=== PATIENT | female | born 1975 | race Caucasian/White ===

== ENCOUNTER → 2023-04-04 10:24 | Outpatient (CLI) | payer MEDICARE, OTHER, SELFPAY | PROVIDERS: PCP Family Medicine; Visit Provider Family Medicine | DX: L08.9 Local infection of the skin and subcutaneous tissue, unspecified (principal); M79.672 Pain in left foot; B95.7 Other staphylococcus as the cause of diseases classified elsewhere | CPT/HCPCS: 87070; 87205 ==

== ENCOUNTER 2024-08-23 10:14 | Outpatient (CLI) | payer MEDICARE, MEDICAID, SELFPAY ==
[2024-08-23 19:31] LABS: Basophils # 0.1 K/mm3 (0-0.2); Basophils % 0.8 % (0.1-2.0); Eosinophils # 0.2 K/mm3 (0.0-0.4); Eosinophils % 2.5 % (0.1-12.0); Hematocrit 40.4 % (37.0-47.0); Hemoglobin 13.2 g/dL (12.2-16.2); Lymphocytes # 2.1 K/mm3 (0.7-4.5); Lymphocytes % 27.7 % (10-50); Mean Corpuscular HGB Conc 32.7 g/dL (31.8-35.4); Mean Corpuscular Hemoglobin 28.1 pg (27.0-31.2); Mean Corpuscular Volume 85.9 fl (81-99); Mean Platelet Volume 8.7 fl (7.4-10.4); Monocytes # 0.4 K/mm3 (0.1-1.0); Neutrophils # 4.7 K/mm3 (1.8-7.8); Neutrophils % 63.9 % (37.0-80.0); Platelet Count 254 K/mm3 (142-424); Red Cell Distribution Width 14.2 % (11.5-17.5); White Blood Count 7.4 K/mm3 (4.8-10.8)
[2024-08-23 20:13] LABS: Alanine Aminotransferase 37 U/L (12-78); Albumin Level 4.6 g/dl (3.5-5.0); Albumin/Globulin Ratio 1.8 (1.1-1.8); Alkaline Phosphatase 75 U/L (38-126); Aspartate Amino Transferase 38 U/L (14-36); Bilirubin,Total 0.7 mg/dl (0.2-1.3); Blood Urea Nitrogen 14 mg/dl (7-17); Calcium 10.2 mg/dl (8.4-10.2); Carbon Dioxide 30 mmol/L (22.0-30.0); Chloride 106 mmol/L (98-107); Estimated Glomerular Filt Rate 89 ml/min (>60); GFR (African American) 108 ML/MIN (>60); Globulin 2.5 g/dL (1.3-3.2); Glucose 89 mg/dl (74-100); Sodium 141 mmol/L (136-145); Total Protein,Serum 7.1 g/dl (6.3-8.2)
[2024-08-23 20:31] LABS: 25-OH Vitamin D, Total 37.3 ng/mL (30-100)
[2024-08-23 20:43] LABS: Thyroid Stimulating Hormone 1.23 uIU/mL (0.465-4.68)
[2024-08-23 21:13] LABS: Vitamin B12 > 1000 pg/mL (239-931)
== END 2024-08-23 23:59 | disposition home or self-care (01) ==
LOC: LAB.DROPOF 08-24 10:15
PROVIDERS: PCP Nurse Practitioner; Visit Provider Nurse Practitioner
DX: E55.9 Vitamin D deficiency, unspecified (principal); D64.9 Anemia, unspecified; F41.9 Anxiety disorder, unspecified; Z92.3 Personal history of irradiation; R05.9 Cough, unspecified; F39 Unspecified mood [affective] disorder; Z68.29 Body mass index [BMI] 29.0-29.9, adult
CPT/HCPCS: 80053; 82306; 82607; 84443; 85025

== ENCOUNTER 2025-05-13 10:45 | Outpatient (CLI) | payer MEDICARE, MEDICAID, SELFPAY ==
--- OUTSIDE RECORDS SUMMARY | 2022-10-24 08:45 | XMS_ITS | Encounter Summary ---
Author Organization [place] [address] Care Team Providers Care Leaf Coverer Name Role Phone Pranav Schmid MD Primary Care Provider [phone] Marco Herring MD Unavailable [phone] Encounter Details Date Type Department Care Team (Latest Contact Info) Description 10/24/2022 7:45 AM EST Hospital Encounter [place] [address] Andre Morley MD [address] [place] [address] Angela Winn, ADY [address] [place] [address] Left without seen Social History Tobacco Use Types Packs/Day Years Used Date Smoking Tobacco: Former Cigarettes Passive Smoke Exposure: Never Smokeless Tobacco: Never Comments:Quit smoking 26 yea rs ago Alcohol Use Standard Drinks/Week Comments No 0 (1 standard drink = 0.6 oz pur e alcohol) PHQ-2 Answer Date Recorded PHQ-2 Total Score 0 01/13/2024 Sexually Active Control Partners Comments Not Currently Post-menopausal Comments No Sex and Gender Information Value Date Recorded Sex Assigned at Not on file Legal Sex Female 2:24 PM EDT Gender Identity Not on file Sexual Orientation Not on file COVID-19 Exposure Response Date Recorded In the last 10 days, have yo u been in contact with someone who was confirmed or suspected to have Coronavirus/COVID-19? No / Unsure 06/18/2023 1:45 PM EDT documented as of this encounter Functional Status * Is the person deaf or does he/she have serious difficulty hearing? Answer Date of Assessment Author No 06/04/2020 1:22 PM EDT Joao Narvaez RN * Is the person blind or does he/she have serious difficulty seeing even when wearing glasses? Answer Date of Assessment Author No 06/04/2020 1:22 PM EDT Joao Narvaez RN * Does this person have serious difficulty walking or climbing stairs? Answer Date of Assessment Author No 06/04/2020 1:22 PM EDT Joao Narvaez RN * Does this person have difficulty dressing or bathing? Answer Date of Assessment Author No 06/04/2020 1:22 PM EDT Joao Narvaez RN * Because of a physical, mental or emotional condition, does this person have difficulty doing errands alone such as visiting a doctor's office or shopping? Answer Date of Assessment Author No 06/04/2020 1:22 PM EDT Joao Narvaez RN * PHQ-9 Total Score Answer Date of Assessment Author 0 01/13/2024 9:04 AM EDT Pily Andino RN * Question Answer Date of Assessment Author Little interest or pleasure in doing things 0 01/13/2024 9:04 AM TIFFANIET Pily Andino RN Feeling down, depressed, or hopeless 0 01/13/2024 9:04 AM TIFFANIET Pily Andino RN PHQ-2 Total Score 0 01/13/2024 9:04 AM EDT Pily Andino RN * Suicide Severity Rating Answer Date of Assessment Author No Risk 06/14/2024 10:00 AM EDT Iveth Monk RMA * [place] Suicide Severity Rating Scale (Q shift for moderate and high) Question Answer Date of Assessment Author 1. In the past month, have y ou wished you were or wished you could go to sleep and not wake up? 0 06/14/2024 10:00 AM EDT Iveth Tamez RMA 2. In the past month, have y ou actually had any thoughts of killing yourself? (If no, skip to question 6) 0 06/14/2024 10:00 AM EDT Iveth Monk R MA 6. Have you ever done anythi ng, started to do anything, or prepared to do anything to end your life? 0 06/14/2024 10:00 AM EDT Iveth Orozco RMA documented as of this encounter Mental Status * Because of a physical, mental or emotional condition, does this person have serious difficulty concentrating, remembering or making decisions? Answer Entry Date Author No 06/04/2020 1:22 PM EDT Joao Narvaez RN documented in this encounter Plan of Treatment Upcoming Encounters Date Type Department Care Team (Late st Contact Info) Description 05/26/2025 9:30 AM EDT [facility] [address] [facility] [address] [place] [address] 06/06/2025 11:00 AM EDT Appointment [facility] [place] [address] Kasia Denton, PATIENT FINANCIAL SERVICES COORDINATOR [address] [place] [address] 06/08/2025 9:15 AM EDT Appointment [place] [address] Judi Krueger, PROGRAM DIRECTOR [address] [place] [address] [address] [place] [address] 12/01/2025 9:00 AM EST Appointment [facility] [address] [place] [id number] Kasia Denton, PATIENT FINANCIAL SERVICES COORDINATOR [address] [facility] [address] 12/01/2025 9:30 AM EST Appointment [facility] [place] [address] Kasia Denton, PATIENT FINANCIAL SERVICES COORDINATOR [address] [place] [address] documented as of this encounter Goals Goal Patient Goal Type Associated Problems Recent Progress Patient-Stated? Author [facility] Breast [facility] On track(2023 1:44 PM EDT) Shreya Adames, OTTONIEL Note: Patient acknowledges understanding of new diagnosis, plan of care, available resources and how to contact Nurse Navigator with any future questions or concerns. [facility] No Ekaterina Medley, OTTONIEL Note: Patient will be compliant with recommended breast imaging. Breast [facility] No Ekaterina Medley, OTTONIEL Note: Patient will be compliant with monthly Self Breast Exams and is aware of to who to contact for any unusual or concerning findings. documented as of this encounter Visit Diagnoses Not on filedocumented in this encounter Additional Health Concerns Infection Onset Date Last Indicated Resolved Time R/O C-Diff 12/04/2022 12/04/2022 12/04/2022 3:18 PM EST Assessment Noted Time PHQ-9 Depression Total Score: 2 09/10/20 1:24 PM EST PHQ-2 Depression Total Score: 2 09/10/20 1:24 PM EST documented as of this encounter Care Teams Leaf Coverer Relationship Specialty Start Date End Date Pranav Schmid MD PCP - General Family Medicine 01/30/16 Marco Herring MD [address] [place] [address] [place] [address] Medical Oncologist Internal Medicine-Hematology and Oncology 09/10/22 documented as of this encounter
--- OUTSIDE RECORDS SUMMARY | 2025-04-05 14:39 | XMS_ITS | Encounter Summary ---
Author Organization [place] [address] Care Team Providers Care Zinc Plater Name Role Phone Pranav Schmid MD Primary Care Provider [phone] Marco Herring MD Unavailable [phone] Reason for Referral * MRI/CAT Scan (Routine) - Closed Specialty Diagnoses / Procedures Referred By Porfirio mcfarland Referred To Contact Radiology Diagnoses Abdominal pain, left upper quadrant Procedures CT ABDOMEN PELVIS W CONTRAST Alexandra Rivas APRN [address] [place] [address] Phone: tel: fax: [facility] [address] [place] [address] Phone: tel: fax: Referral ID Status Reason Start Date Expiration Date Visits Re quested Visits Authorized [id number] Closed 03/31/2025 03/31/2026 1 1 Reason for Visit * MRI/CAT Scan (Routine) - Closed Specialty Diagnoses / Procedures Referred By Porfirio mcfarland Referred To Contact Radiology Diagnoses Abdominal pain, left upper quadrant Procedures CT ABDOMEN PELVIS W CONTRAST Alexandra Rivas APRN [address] [facility] [address] [place] [address] Phone: tel: fax: [place] [address] [place] [address] Phone: tel: fax: Referral ID Status Reason Start Date Expiration Date Visits Re quested Visits Authorized [id number] Closed 03/31/2025 03/31/2026 1 1 Encounter Details Date Type Department Care Team (Latest Contact Info) Description 04/05/2025 2:39 PM EDT - 04/05/2025 11:59 PM EDT Hospital Encounter [facility] [address] [place] [address] Alexandra Rivas, AIDS COUNSELOR [address] [place] [address] Abdominal pain, left upper quadrant Discharge Disposition: Home or Self Care Social History Tobacco Use Types Packs/Day Years Used Date Smoking Tobacco: Former Cigarettes Smokeless Tobacco: Never Comments:Quit smoking 26 yea rs ago Alcohol Use Standard Drinks/Week Comments No 0 (1 standard drink = 0.6 oz pur e alcohol) PHQ-2 Answer Date Recorded PHQ-2 Total Score 0 01/13/2024 Sexually Active Control Partners Comments Not Currently Comments No Sex and Gender Information Value Date Recorded Sex Assigned at Not on file Legal Sex Female 2:24 PM EDT Gender Identity Not on file Sexual Orientation Not on file documented as of this encounter Functional Status [...] 1:22 PM EDT Joao Narvaez RN documented as of this encounter Mental Status * Because of a physical, mental or emotional condition, does this person have serious difficulty concentrating, remembering or making decisions? Answer Entry Date Author No 06/04/2020 1:22 PM EDT Joao Narvaez RN documented in this encounter Medications at Time of Discharge cholecalciferol, vitamin D3, 10 mcg (400 unit) Oral Capsule 10 mcg. 05/03/2024 ibuprofen (ADVIL;MOTRIN) 800 mg Oral Tablet Take 800 mg by mouth every 8 hours. mecobalamin, vitamin B12, 1,000 mcg Oral Tablet, Chewable 1,000 mcg. 05/03/2024 Carboxymethylcell ulose Sodium (REFRESH TEARS) 0.5 % Opht Drops Place 1 Drop into both eyes 2 times daily. 30 mL 1 10/01/2022 5 cholestyramine light 4 gram Oral Powder in PacketIndications :Invasive ductal carcinoma of breast, female, left (HCC),Diarrhea, unspecified type Take 1 Packet by mouth 3 times daily. 60 Each 1 04/21/2023 5 diphenoxylate-atr opine (LOMOTIL) 2.5-0.025 mg Oral TabletIndications :Invasive ductal carcinoma of breast, female, left (HCC) TAKE ONE (1) TABLET BY MOUTH FIVE (5) TIMES DAILY NEEDED FOR DIARRHEA 45 Tablet 12/05/2022 5 famotidine (PEPCID) 20 mg Oral TabletIndications :Invasive ductal carcinoma of breast, female, left (HCC) Take 1 Tablet by mouth daily. 90 Tablet 3 06/14/2024 11:11 AM EDT 06/14/2024 5 hydrOXYzine (ATARAX) 25 mg Oral Tablet Take 1 Tablet by mouth every 6 hours as needed for Itching. 30 Tablet 1 11/26/2022 5 lidocaine-priloca ine (EMLA) Top Cream Apply topically as needed (30 min prior to access). 04/10/2023 5 MAGIC MOUTHWASH (LIDO/DIPHEN/NYST AT) ORAL COMPOUND swish and swallow 10-20ml every 3 hours as needed *this medication was compounded by the pharmacy using 200ml nystatin, 170ml diphenhydramine, 50ml viscous lidocaine, and 30ml patterson syrup* 450 mL 1 10/24/2022 12:05 PM EST 10/01/2022 5 Miles Mixture (MILES MIXTURE) Suspension Take 10-20 mL by mouth every 3 hours as needed for Other. Swish and swallow 10-20ml every 3 hours PRN pain Nystatin oral suspension (100,000 units/ml) 200 ml Benadryl elixir 170ml Viscous Xylocaine 2% 50ml Patterson or Vanilla syrup (not elixir) 30ml 450 mL 1 10/24/2022 5 penicillin v potassium (VEETID) 500 mg Oral Tablet TAKE ONE (1) TABLET BY MOUTH FOUR TIMES A DAY; TAKE UNTIL ENTIRE RX IS FINISHED. 09/28/2024 5 potassium chloride (KLOR-CON M) 20 mEq Oral Tab Sust.Rel. Particle/Crystal TAKE ONE (1) TABLET BY MOUTH TWICE DAILY 60 Tablet 1 06/24/2023 5 selenium sulfide (SELSUN) 1 % Top Shampoo Use topically once daily. 325 mL 1 11/26/2022 5 triamcinolone (KENALOG) 0.025 % Top Cream Apply topically 2 times daily. 454 g 12/15/2023 10:07 AM EST 12/15/2023 5 documented as of this encounter Discharge Disposition Disposition Code Departure Means Destination Home or Self Care documented in this encounter Plan of Treatment Upcoming Encounters Date Type Department Care Team (Late st Contact Info) Description 05/26/2025 9:30 AM EDT Clinical Support [facility] Edg [address] [facility] [address] [place] [address] 06/06/2025 11:00 AM EDT Appointment [facility] [place] [address] Kasia Denton, AIDS COUNSELOR [address] [place] [address] 06/08/2025 9:15 AM EDT Appointment [facility] [place] [id number] Judi Krueger, LISE [address] [place] [address] [address] [place] [place] [address] 12/01/2025 9:[address] [facility] [address] [place] [id number] Kasia Denton, AIDS COUNSELOR [address] [place] [address] 12/01/2025 9:30 AM EST Appointment [facility] Women's Wellness [facility] [place] [address] Kasia Denton, AIDS COUNSELOR [address] [facility] [place] [id number] documented as of this encounter Goals Goal Patient Goal Type Associated Problems Recent Progress Patient-Stated? Author [facility] On track(2023 1:44 PM EDT) Shreya Adames, OTTONIEL Note: Patient acknowledges understanding of new diagnosis, plan of care, available resources and how to contact Nurse Navigator with any future questions or concerns. [facility] Ekaterina Rocha, OTTONIEL Note: Patient will be compliant with recommended breast imaging. [facility] Ekaterina Rocha, OTTONIEL Note: Patient will be compliant with monthly Self Breast Exams and is aware of to who to contact for any unusual or concerning findings. documented as of this encounter Procedures Procedure Name Priority Date/Time Associated Diagnosis Comments CT ABDOMEN PELVIS W CONTRAST Routine 04/05/2025 3:10 PM EDT Abdominal pain, left upper quadrant documented in this encounter Results * CT ABDOMEN PELVIS W CONTRAST (04/05/2025 3:10 PM EDT) Anatomical Region Laterality Modality Abdomen, Chest, Pelvis, Hip Comp uted Tomography 04/05/2025 3:10 PM EDT Impressions 04/05/2025 3:48 PM EDT 1. No acute CT abnormality of the abdomen or pelvis. 2. Cholelithiasis. Recommend correlation for signs/symptoms of biliary colic. - Note: Radiology results need to be interpreted within a comprehensive clinical context. If you have questions about the radiology report, please contact the office of the ordering clinician. Narrative 04/05/2025 3:[address] ABDOMEN AND PELVIS WITH CONTRAST, 04/05/2025 3:10 PM CLINICAL HISTORY: R10.12-Left upper quadrant [id number]. COMPARISON: None. PROCEDURE COMMENTS: Multi-detector CT of the abdomen and pelvis with multiplanar reformatting. Isovue 370 IV contrast given along with radiodense GI contrast as recorded in EPIC. Dose 1 : CT DLP Total : 565.51 mGycm DLP Spiral Max : 564.23 mGycm Maximum CTDI Vol : 11.98 mGy FINDINGS: LOWER THORAX: Lung bases unremarkable. ABDOMEN AND PELVIS: A few calcified gallstones at the gallbladder neck. The spleen, pancreas, and adrenal glands are unremarkable. Unremarkable appearance of the right kidney. A few left renal cortical cysts, the largest measuring 2.3 cm in the left upper pole. No urolithiasis or hydronephrosis. No bowel obstruction. No inflammatory bowel change. Status post appendectomy. No abnormal mass, fluid, or adenopathy in the pelvis. No acute osseous abnormality. Procedure Note Curtis Baker MD - 04/05/2025 CT ABDOMEN AND PELVIS WITH CONTRAST, 04/05/2025 3:10 PM CLINICAL HISTORY: R10.12-Left upper quadrant [id number]. COMPARISON: None. PROCEDURE COMMENTS: Multi-detector CT of the abdomen and pelvis with multiplanar reformatting. Isovue 370 IV contrast given along withradiodense GI contrast as recorded in EPIC. Dose 1 : CT DLP Total : 565.51 mGycm DLP Spiral Max : 564.23 mGycm Maximum CTDI Vol : 11.98 mGy FINDINGS: LOWER THORAX: Lung bases unremarkable. ABDOMEN AND PELVIS: A few calcified gallstones at the gallbladder neck.The spleen, pancreas, and adrenal glands are unremarkable. Unremarkableappearance of the right kidney. A few left renal cortical cysts, the largestmeasuring 2.3 cm in the left upper pole. No urolithiasis or hydronephrosis. No bowel obstruction. No inflammatory bowel change. Status postappendectomy. No abnormal mass, fluid, or adenopathy in the pelvis. No acute osseous abnormality. IMPRESSION: 1. No acute CT abnormality of the abdomen or pelvis. 2. Cholelithiasis. Recommend correlation for signs/symptoms of biliarycolic. - Note: Radiology results need to be interpreted within a comprehensiveclinical context. If you have questions about the radiology report, please contactthe office of the ordering clinician. Alexandra Rivas AIDS COUNSELOR IMG CT ORDERABLES Final Result documented in this encounter Visit Diagnoses Diagnosis Abdominal pain, left upper quadrant documented in this encounter Administered Medications Inactive Administered Medications - up to 1 most recent administrations Medication Order MAR Action Action Date Dose Rate Site iopamidoL (ISOVUE-370) 370 mg iodine /mL (76 %) injection (LOW) 100 mL 100 mL, Intravenous, ONCE PRN, 1 dose, Starting on 04/05/25 at 1450, Until 04/05/25 at 1510, Radiography/Imaging, Radiology Procedure, VESICANT , CT (Contrasts) Given 04/05/2025 3:10 PM EDT 100 mL sodium chloride 0.9% syringe Intravenous, ONCE PRN, 1 dose, Starting on 04/05/25 at 1450, Until 04/05/25 at 1510, Line Care, Flush peripheral lines every 12 hours, central lines every 8 hours, and after IV medication, CT (Contrasts) Given 04/05/2025 3:10 PM EDT documented in this encounter Care Teams Zinc Plater Relationship Specialty Start Date End Date Pranav Schmid MD PCP - General Family Medicine 01/30/16 Marco Herring MD [address] [place] [address] [place] [address] Medical Oncologist Internal Medicine-Hematology and Oncology 09/10/22 documented as of this encounter
--- OUTSIDE RECORDS SUMMARY | 2025-04-12 09:06 | XMS_ITS | Encounter Summary ---
Author Organization [place] [address] Care Team Providers Care Automobile Service Writer Name Role Phone Pranav Schmid MD Primary Care Provider [phone] Marco Herring MD Unavailable [phone] Reason for Visit * Physical Therapy (Routine) - Pending Review Specialty Diagnoses / Procedures Referred By Porfirio mcfarland Referred To Contact Physical Therapist / Physical Therapy Diagnoses Breast swelling, History of left breast cancer Procedures PT LYMPHEDEMA Kasia Spears, SCIENTIFIC ARTIST [address] [place] [address] Phone: tel: fax: Jessica Marin, QUIQUE Referral ID Status Reason Start Date Expiration Date V isits Requested Visits Authorized [id number] Pending Review 04/12/2025 04/12/2026 99 99 Encounter Details Date Type Department Care Team (Latest Contact Info) Description 04/12/2025 9:06 AM EDT - 04/12/2025 11:59 PM EDT Hospital Encounter [facility] Physical Therapy [address] [place] [address] Jessica Marin, PT Discharge Disposition: Home or Self Care Social [...] of Assessment Author No 06/04/2020 1:22 PM TIFFANIET Joao Narvaez RN * Does this person [...] Entry Date Author No 06/04/2020 1:22 PM Joao Shaver RN documented in this encounter Medications at [...] 2 times daily. 30 mL 1 10/01/2022 cholestyramine light 4 gram Oral Powder in [...] or Self Care documented in this encounter Progress Notes * Blaine Little - 04/12/2025 10:11 AM EDT Program_ID:[id number] Access Code: [email or web address] URL: [email or web address] Date: 04-12-2025 Prepared By: Jessica Marin Program Notes Patient Education - Lymphedema: Exercise Considerations - Putting On and Taking Off a Compression Sleeve and Gauntlet - What Is Lymphedema? - Lifestyle Choices for Lymphedema - Complete Decongestive Therapy for Upper Extremity Lymphedema * Provider, Unknown - 04/12/2025 9:37 AM EDT * Jessica Marin, PT - 04/12/2025 9:30 AM EDT Images from the original note were not included. Upper Extremity Lymphedema Evaluation Patient Name: Rock Morris : 1975 Visit #: 1 (Medicare Replacement: [employer]) Onset Date: LEFT Breast Sx for IDC Lumpectomy & ALND 03/06/2023-NEGATIVE 3 LN MD Diagnosis: Breast swelling - Primary N63.0 611.72 History of left breast cancer Z85.3 Restrictions/Precautions: [place] LEFT sided Breast cancer, Brain ganglioma, s/p lumpectomy, chemo, XRT, ALND, patric. Cubital rash Referring Physician: Corrie Radiation Oncologist: [facility] Medical Oncologist: Marco Herring Surgeon: Peyman GODFREY Follow Up: Endo 04/25 MRI 06/06 Rad Onc: 06/08 Mammo & F/U w referring 12/01/25 Evaluation Date: 04/12/2025 Reassessment Due: 05/12/25 Primary Insurance: MEDICARE REPLACEMENT/[employer]ET[employer] MEDICARE HMO Secondary Insurance: NONE Future Appointments Date Time Provider Department Center 04/12/2025 9:30 AM Jessica Marin, PT [facility] 04/25/2025 2:30 PM [facility] ENDO RM 7 [facility] Endo [facility] 06/06/2025 11:00 AM [facility] MR RM 1 [facility] MRI [facility] 06/08/2025 9:15 AM Judi Krueger, LEADITE WORKER [facility] RAD [facility] 12/01/2025 9:00 AM [facility] MAMMO DIAG [facility]ON[facility] RM 1 [facility] Mammo [facility] 12/01/2025 9:30 AM Kasia Denton APRN [facility] Insurance Authorization: Physical Therapist Authorized (04/12/2025-04/12/2026) Visits Requested Visits Authorized Visits Completed Visits Scheduled 1 1 -- 1 Details Referral ID: [id number] Authorization Status Reason: -- Authorization Comments: -- Referred To: Jessica Marin PT at [facility] PT, [facility] Referred By: Kasia Denton APRN Creation Date: 04/03/2025 Referral Reasons: -- Referral Order: -- Time In/Out: 930/1020 a.m. Timed Treatment Minutes: Self care/home management training 15 minutes Therapeutic Exercise 15 minutes Total Timed Code Treatment Minutes: 30 Untimed Treatment Minutes: PT Eval Total Treatment Minutes: 50 Charges: MOD EVAL x1, Pt ed x1, TE x1 This evaluation to serve as D/C summary if the patient doesn't return for further treatment. Subjective: Patient is a 49 y.o. female with primary diagnosis of left Upper extremities and Breast/Chest lymphedema by Kasia Sauer, ADY History: Pt states she was dx & had brain Sx at age 10 years, 16 years, has been on disability for ganglioma since age 15, lives w in laws, raising her 8 y/o grand daughter, MIL helps home schoolher grand daughter, Pt does NOT drive since brain Sx, MIL typically accompanies her, but came by way of Ins. Provided transport TODAY. Had LEFT breast cancer in 2022, completed chemo, XRT following LEFT lumpectomy w ALND. Cancer History: Type of Cancer: [x] Yes-LEFT IDC [] No Surgery for Cancer: [x] Yes-LEFT lumpectomy w SN [] No Lymph Nodes Removed: 3 Positive: 0 Chemo: [x] Yes [] No When: 2022 Port still in: [] Yes [x] No Radiation: [x] Yes [] No When: 2022 Complications: infections If pain a symptom for which you are being seen? No Pain is not an issue for which treatment is being performed. Diagnostic Tests: Nothing recent Doppler: [] Yes [x] No Results: PET: [] Yes [x] No Results: CT: [] Yes [x] No Results: MRI: [] Yes [x] No Results: MUGA: [] Yes [x] No Results: Have you received any Speech or Physical therapy this year? [] Yes [x] No Are you currently receiving any Home Health services? [] Yes [x] No Any problems with speech, communication, memory? [x] Yes-from brain Sx [] No Barriers to learning? [x] Yes-comprehension from brain Sx [] No Recent falls? [] Yes [x] No How would you rate your overall health? [] Excellent [] Good [x] Fair [] Poor Any significant weight loss/gain: [x] Yes [] No Amount: has increased 30 pounds over last 18 mo. Any feelings of depression? [] Yes [x] No Any sexual health discomfort,dryness, or related issues? 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) Urinary incontinence Past Surgical History: Procedure Laterality Date APPENDECTOMY BRAIN SURGERY cancer-gangioloma BREAST BIOPSY Right 02/21/2016 Right Breast US biopsy benign BREAST BIOPSY Left 08/13/2022 malignant BREAST BIOPSY Right 09/09/2022 malignant BREAST BIOPSY Left 04/10/2023 Left breast re excision; Surgeon: Andre Morley MD; Location: [facility]; Service: General BREAST LUMPECTOMY Bilateral 03/06/2023 Left Breast Mammogram Guided Segmentectomy, Mcconnell Lymph Node Dissection, Right breast Mammogram guided Segmentectomy ; Surgeon: Andre Morley MD; Location: [facility]; Service: General IR FLUOROSCOPY GUIDED CENTRAL VENOUS ACCESS DEVICE REMOVAL 10/09/2023 IR FLUOROSCOPY GUIDED CENTRAL VENOUS ACCESS DEVICE REMOVAL 10/09/2023 Meredith Villarreal PA-C [facility] IR IR PORT PLACEMENT EQUAL OR > 5 YEARS 09/17/2022 IR PORT PLACEMENT EQUAL OR > 5 YEARS 09/17/2022 Kirt Mullins MD [facility] IR IR ULTRASOUND GUIDED VASCULAR ACCESS 09/17/2022 IR ULTRASOUND GUIDED VASCULAR ACCESS 09/17/2022 Kirt Mullins MD [facility] IR LAPAROSCOPY MOUTH SURGERY wisdom teeth TONSILLECTOMY AND ADENOIDECTOMY (Not in a hospital admission) Current Outpatient Medications: Carboxymethylcellulose Sodium (REFRESH TEARS) 0.5 % Opht Drops, Place 1 Drop into both eyes 2 timesdaily. (Patient not taking: Reported on 07/27/2024), Disp: 30 mL, Rfl: 1 cholecalciferol, vitamin D3, 10 mcg (400 unit) Oral Capsule, 10 mcg., Disp: , Rfl: cholestyramine light 4 gram Oral Powder in Packet, Take 1 Packet by mouth 3 times daily. (Patient not taking: Reported on 07/27/2024), Disp: 60 Each, Rfl: 1 diphenoxylate-atropine (LOMOTIL) 2.5-0.025 mg Oral Tablet, TAKE ONE (1) TABLET BY MOUTH FIVE (5) TIMES DAILY NEEDED FOR DIARRHEA (Patient not taking: Reported on 12/02/2024), Disp: 45 Tablet, Rfl: 0 famotidine (PEPCID) 20 mg Oral Tablet, Take 1 Tablet by mouth daily. (Patient not taking: Reported on 07/27/2024), Disp: 90 Tablet, Rfl: 3 hydrOXYzine (ATARAX) 25 mg Oral Tablet, Take 1 Tablet by mouth every 6 hours as needed for Itching.(Patient not taking: Reported on 07/27/2024), Disp: 30 Tablet, Rfl: 1 ibuprofen (ADVIL;MOTRIN) 800 mg Oral Tablet, Take 800 mg by mouth every 8 hours., Disp: , Rfl: lidocaine-prilocaine (EMLA) Top Cream, Apply topically as needed (30 min prior to access). (Patientnot taking: Reported on 12/02/2024), Disp: , Rfl: MAGIC MOUTHWASH (LIDO/DIPHEN/NYSTAT) ORAL COMPOUND, swish and swallow 10-20ml every 3 hours as needed *this medication was compounded by the pharmacy using 200ml nystatin, 170ml diphenhydramine, 50mlviscous lidocaine, and 30ml patterson syrup* (Patient not taking: Reported on 07/27/2024), Disp: 450 mL, Rfl: 1 mecobalamin, vitamin B12, 1,000 mcg Oral Tablet, Chewable, 1,000 mcg., Disp: , Rfl: Miles Mixture (MILES MIXTURE) Suspension, Take 10-20 mL by mouth every 3 hours as needed for Other.Swish and swallow 10-20ml every 3 hours PRN pain Nystatin oral suspension (100,000 units/ml) 200 mlBenadryl elixir 170ml Viscous Xylocaine 2% 50ml Patterson or Vanilla syrup (not elixir) 30ml (Patient not taking: Reported on 07/27/2024), Disp: 450 mL, Rfl: 1 penicillin v potassium (VEETID) 500 mg Oral Tablet, TAKE ONE (1) TABLET BY MOUTH FOUR TIMES A DAY; TAKE UNTIL ENTIRE RX IS FINISHED. (Patient not taking: Reported on 12/02/2024), Disp: , Rfl: potassium chloride (KLOR-CON M) 20 mEq Oral Tab Sust.Rel. Particle/Crystal, TAKE ONE (1) TABLET BY MOUTH TWICE DAILY (Patient not taking: No sig reported), Disp: 60 Tablet, Rfl: 1 selenium sulfide (SELSUN) 1 % Top Shampoo, Use topically once daily. (Patient not taking: Reported on 12/02/2024), Disp: 325 mL, Rfl: 1 triamcinolone (KENALOG) 0.025 % Top Cream, Apply topically 2 times daily. (Patient not taking: Reported on 07/27/2024), Disp: 454 g, Rfl: 0 Allergies Allergen Reactions Doxycycline Shortness Of Breath and Rash Sulfa (Sulfonamide Antibiotics) Hives and Shortness Of Breath Chlor-Trimeton Non-Drowsy Difficulty w/concentration Clindamycin Rash Codeine agitation Tamiflu [Oseltamivir] Myalgia Prior Interventions: NONE Sleeve: [] Yes [x] No Date Purchased: LAST year Vendor: [employer] Bandages: [] Yes [x] No Using currently: [] Yes [x] No Someone to assist with bandages: [] Yes [x] No MLD: [] Yes [x] No Current Self MLD: [] Yes [x] No Social/Function: on disability-since 1991 age 15 years due to brain cancer dx age 16 for Sx startedage 10 years, Recreational Activities: cooking, cleaning housework, MIL home schools her 8 y/o grand daughter, Living situation: shares house w MIL & STEW-she rents half of the house from them, raising her 8y/o grand daughter, uses ride service thru Ins. Pt does drive, but due to brain Sx, MIL rides w her Hand dominance: [] Left [x] Right Patient Goals: reaching overhead, managing Lymphedema, self MLD & replace compression every 6 mo. Objective: Observation: 202 lb. Mesomorphic RIGHT handed middle aged female weears glasses BMI=33.4 Body Composition: Mesomorphic Assistive Devices/DME (if present): Posture: WNL FOTO Score & PSFS FOTO??: (1-100) Initial 04/12/2025 Re-Assess Score (Predicted) 68 (61) PSFS: Patient will be able to... (0-10) Reaching overhead 9 Managing Lymphedema 0 Self MLD & obtain replacement compression every 6 mo. 0 Sensation/Neurovascular: WFL Skin Integrity: Open areas: [] Yes [x] No Comments: Drainage: [] Yes [x] No Erythema: [x] Yes [] No Other: hyperpigmentation and scarring & divet where lumpectomy performed Left lateral side breast behind areola Nails: striated Incisions: Edema: Attached girth measurements: [x] Yes [] No Pitting Present: Stage III Stemmer's Sign: Negative ROM: WFL?: [x] Yes [] No If no, describe limitations: Shoulder ROM: Upper Extremity (normal ??) Active (Passive) Left Right Shoulder Flexion (180??) 175 175 Shoulder Abd (180??) 180 180 Girth Measurements: Date: 04/12/2025 04/12/2025 (cm) Left Right Metacarpals 17.5 cm 17.7 cm Diagonal Palm 19.3 20 Wrist 14.4 14.1 6 above 24.5 25.3 Elbow 24.5 24.5 2 above 30 29.7 6 above 33.5 35 Arm length 40 Axillary Circumference 93 Chest/Breast Circumference 104.5 Umbilical Circumference 93 Treatment: Pt ed x15 min.: [x] Discussed lymphedema, CDT, the 18 steps, home pumps, compression options, and answered patient's questions. [] Gave pt list of compression vendors. [x] Written & verbal instructions for self MLD & for HEP: There-ex x15 min.: Access Code: [email or web address] URL: [email or web address] Date: 04/12/2025 Prepared by: Jessica Marin Patient Education - Lymphedema: Exercise Considerations - Putting On and Taking Off a Compression Sleeve and Gauntlet - What Is Lymphedema? - Lifestyle Choices for Lymphedema - Complete Decongestive Therapy for Upper Extremity Lymphedema [] Manual Therapy: MLD with pt supine including short neck, deep breathing, Right axilla, Left groin, Left anterior chest, Left UE. [x] No time for MLD due to time needed for eval & instruction. [x] Send info to Vendor: vendor of choice for home pump/compression therapy following 30 days FAILED conservative mgt. To include elevation, compression, diet, exercise & MLD. Response to HEP instruction/patient education: Instruction/patient education, Verbalized understanding, Returned demonstration Response to treatment: No change in pain or function Assessement: Patient presents with left Upper extremities Secondary Lymphedema. Pt presents with hyperpigmentation. Pt will need 30 day trial exercise, compression, elevation for > 4 weeks without relief. Functional impairments and activity limitations include: reaching overhead, managing Lymphedema & replacing compression as well as self MLD. Referral: [] Yes, home pump [x] Yes, compression [] No Resource list given: [] Yes, compression garment vendors [] No, patient has from previous PT [x] No-pt forgot Rehab Potential: [] Good [x] Fair [] Poor Short Term Goals (set for 2 weeks) to 04/25/25: Patient will be independent with HEP in order to promote long-term health and reduce risk for injury. [x] Unmet [] Progressing [] Met 2. Patient will demonstrate/verbalize understanding of the steps to lymphedema prevention to minimize risk of progression [x] Unmet [] Progressing [] Met 3. Obtain compression garment with independent donning/doffing. [x] Unmet [] Progressing [] Met Mcfp Goals: (set for 4 weeks) to 05/12/25: Patient will demonstrate independence with compression application to decrease lymphedema progression [x] Unmet [] Progressing [] Met 2. Patient will be independent with self MLD to decrease lymphedema progression [x] Unmet [] Progressing [] Met 3. Improve PSFS scores by 1 point to show overall improvement with reaching overhead, managing Lymphedema & replacing compression every 6 mo. [x] Unmet [] Progressing [] Met 4. Improve function score on FOTO to 73 for reaching overhead, managing Lymphedema & replacing compression every 6 mo. [x] Unmet [] Progressing [] Met Plan: [] Continue per plan of care [] Alter current plan (see comments) [x] Plan of care initiated [] Hold pending MD visit [] Discharge Comments: Reinforce self-care Patient will be seen 1-2 times per week for 4 weeks to 05/12/25. Treatments to consist of Therapeutic exercise 38300, Manual soft tissue and/or joint mobilization 48697, Patient education, Self care/Home management training 25314, and Vaso 40118 with focus on Complete Decongestive Therapy (instruction in self care, exercise instruction, compression therapy, manual lymphatic drainage, skin and nailcare). Patient present with co-morbidities of neurological disorder and personal factors that may impact patient/family's ability to Perform ADLs. During today's evaluation, he/she presented with problem areas in cardiovascular/ pulmonary system and integumentary system that are impacting functional activities and participation (see objective measures for further detail). Due to indicated course of physical therapy, the patient's presentation is evolving at this time. This patient presented today withmoderate complexity. Reference Chart: Co-morbidities & Personal Factors Body system elements Presentation Clinical Decision Making Low Evaluation 0 1-2 Stable / Predictable Low Moderate Evaluation 1-2 3 or more Evolving/ Changing Moderate High Evaluation 3 or more 4 or more Unstable/ Unpredictable High Signature: Jessica Marin, PT Date: 04/12/2025 documented in this encounter Plan of Treatment Upcoming Encounters Date Type Department Care Team (Late st Contact Info) Description 05/26/2025 9:30 AM EDT Clinical Support [facility] [address] [place] [address] [address] [place] [address] 06/06/2025 11:00 AM EDT Appointment [facility] [place] [address] Kasia Denton, SCIENTIFIC ARTIST [address] [place] [address] 06/08/2025 9:15 AM EDT Appointment [facility] [place] [address] Judi Krueger, LEADITE WORKER [address] [place] [address] [address] [place] [address] 12/01/2025 9:00 AM EST Appointment [facility] [address] [place] [id number] Kasia Denton, SCIENTIFIC ARTIST [address] [place] [address] 12/01/2025 9:30 AM EST Appointment [facility] [place] [address] Kasia Denton, SCIENTIFIC ARTIST [address] [facility] [address] documented as of this encounter Goals Goal Patient Goal Type Associated Problems Recent Progress Patient-Stated? Author Breast Health Breast Health On track(2023 1:44 PM EDT) Shreya Adames, RN Note: Patient acknowledges understanding of new diagnosis, plan of care, available resources and how to contact Nurse Navigator with any future questions or concerns. [facility] Ekaterina Rocha, RN Note: Patient will be compliant with recommended breast imaging. [facility] Ekaterina Rocha, RN Note: Patient will be compliant with monthly Self Breast Exams and is aware of to who to contact for any unusual or concerning findings. documented as of this encounter Visit Diagnoses Not on filedocumented in this encounter Care Teams Automobile Service Writer Relationship Specialty Start Date End Date Pranav Schmid MD PCP - General Family Medicine 01/30/16 Marco Herring MD [address] [place] [address] [place] [address] Medical Oncologist Internal Medicine-Hematology and Oncology 09/10/22 documented as of this encounter
[2025-05-13 14:41] LABS: Hematocrit 41.9 % (37.0-47.0); Hemoglobin 13.1 g/dL (12.2-16.2); Immature Granulocytes % 0.2 %; Mean Corpuscular HGB Conc 31.3 g/dL (31.8-35.4); Mean Corpuscular Hemoglobin 27.9 pg (27.0-31.2); Mean Corpuscular Volume 89.3 fl (81-99); Nucleated Red Blood Cells % 0 %; Platelet Count 233 K/mm3 (142-424); Red Blood Count 4.69 M/mm3 (4.20-5.40); Red Cell Distribution Width-SD 49.8 fL; White Blood Count 5.3 K/mm3 (4.8-10.8)
[2025-05-13 14:59] LABS: Alanine Aminotransferase 36 U/L (12-78); Albumin Level 4.6 g/dl (3.5-5.0); Albumin/Globulin Ratio 1.8 (1.1-1.8); Alkaline Phosphatase 73 U/L (38-126); Anion Gap 13.3 mEq/L (5-15); Aspartate Amino Transferase 31 U/L (14-36); Bilirubin,Total 0.4 mg/dl (0.2-1.3); Blood Urea Nitrogen 13 mg/dl (7-17); Calcium 9.8 mg/dl (8.4-10.2); Carbon Dioxide 30 mmol/L (22.0-30.0); Chloride 102 mmol/L (98-107); Cholesterol 219 mg/dl (140-200); Creatinine,Serum 0.80 mg/dl (0.52-1.04); Estimated Glomerular Filt Rate 76 ml/min (>60); GFR (African American) 92 ML/MIN (>60); Globulin 2.5 g/dL (1.3-3.2); Glucose 83 mg/dl (74-100); HDL Cholesterol 41 mg/dl (40-60); Potassium 4.3 mmoL/L (3.5-5.1); Sodium 141 mmol/L (136-145); Total Protein,Serum 7.1 g/dl (6.3-8.2); Triglycerides 238 mg/dl (30-150); Uric Acid 4.2 mg/dl (2.5-6.2)
[2025-05-13 15:41] LABS: C-Reactive Protein 2.0 mg/L (0-4)
[2025-05-13 16:27] LABS: Hepatitis C Ab Qual. W/ RFX NEGATIVE (Negative)
[2025-05-14 05:57] LABS: Hepatitis B Surface Antigen Negative (Negative)
[2025-05-14 10:43] LABS: RA Latex Turbid. 13.6 IU/mL (<14.0)
--- OUTSIDE RECORDS SUMMARY | 2025-05-16 09:00 | XMS_ITS | Encounter Summary ---
Author Organization [place] [address] Care Team Providers Care Ux Architect Name Role Phone Pranav Schmid MD Primary Care Provider [phone] Marco Herring MD Unavailable [phone] Reason for Referral * Ultrasound (Routine) - Pending Review Specialty Diagnoses / Procedures Referred By Contac bruna Referred To Contact Radiology Diagnoses Postmenopausal bleeding Procedures US PELVIS AND TRANSVAGINAL NON OB COMPLETE Dick Chang MD [address] [place] [address] [address] [place] [address] Phone: tel: fax: Referral ID Status Reason Start Date Expiration Date V isits Requested Visits Authorized [id number] Pending Review 05/16/2025 05/16/2026 1 1 Reason for Visit * Reason Comments Follow-up Pt following up from mammogram on 03/04/2025Pt consents to [facility] Annual Exam Preventative Care La st thin prep: 03/18/2022 Result: NormalLast Mammogram: 03/04/2025 ACR 0 needs additional imaginingMammo US 03/04/2025Last Colon Cancer Screening: Never doneLast DEXA Scan: Not done (due at 50 yrs 10/2025)HPV Vaccine Series: Never doneScreening Labs: 2023 Encounter Details Date Type Department Care Team (Latest Contact Info) Description 05/16/2025 9:00 AM EDT Office Visit [facility] [address] [facility] [address] [place] [phone] Dick Chang MD 20 [facility] [address] [place] [phone] Invasive ductal carcinoma of breast, female, left (HCC) (Primary Dx); History of breast cancer; Well woman exam with routine gynecological exam; Cervical cancer screening; Screening for HPV (human papillomavirus); Postmenopausal bleeding Social History Tobacco Use Types Packs/Day Years Used Date Smoking Tobacco: Former Cigarettes Passive Smoke Exposure: Never Smokeless Tobacco: Never Tobacco Cessation:Counseling Given: Not Answered Comments:Quit smoking 26 years ago Alcohol Use Standard Drinks/Week Comments No [...] on file documented as of this encounter Last Filed Vital Signs Vital Sign Reading Time Taken Comments Blood Pressure 122/68 05/16/2025 9:10 AM EDT Pulse - - Temperature - - Respiratory Rate - - Oxygen Saturation - - Inhaled Oxygen Concentration - - Weight 89 kg (196 lb 3.2 oz) 05/16/2025 9:10 AM EDT Height 167.6 cm (5' 6 ) 05/16/2025 9:10 AM EDT Body Mass Index 31.67 05/16/2025 9:10 AM EDT documented in this encounter Functional Status * Is the [...] EDT Clinical Support [facility] [address] [place] [address] [address] [place] [address] 06/06/2025 11:00 AM EDT Appointment [facility] [place] [address] Kasia Denton, HANSARD REPORTER [address] [place] [address] 06/08/2025 9:15 AM EDT Appointment [place] [address] Judi Krueger NP [address] [place] [address] [place] [address] 12/01/2025 9:00 AM EST Appointment [place] [facility] [address] [place] [id number] Kasia Denton, HANSARD REPORTER [address] [facility], [place] [id number] 12/01/2025 9:30 AM EST Appointment [facility] [address] [place] [id number] Kasia Denton, HANSARD REPORTER [address] [facility] [place] [address] Pending Results Name Type Priority Associated Diagnoses Date /Time [facility] WELL LOGGING CAPTAIN CYTOLOGY ORDER Lab Routine Cervical cancer screening Screening for HPV (human papillomavirus) 05/16/2025 9:44 AM EDT WELL LOGGING CAPTAIN CYTOLOGY REQUEST (PAP ONLY) Lab Routine Cervical cancer screening Screening for HPV (human papillomavirus) 05/16/2025 9:44 AM EDT HPV HIGH RISK WITH REFLEX TO GENOTYPE Microbiology Routine Cervical cancer screening Screening for HPV (human papillomavirus) 05/16/2025 9:44 AM EDT Scheduled Orders Name Type Priority Associated Diagnoses Orde r Schedule [facility] WELL LOGGING CAPTAIN CYTOLOGY ORDER Lab Routine Cervical cancer screening Screening for HPV (human papillomavirus) Expected: 05/16/2025, Expires: 05/23/2025 US PELVIS AND TRANSVAGINAL NON OB COMPLETE Imaging Routine Postmenopausal bleeding 1 Occurrences starting 05/16/2025 until 05/16/2026 documented as of this encounter Goals Goal Patient Goal Type Associated Problems Recent Progress Patient-Stated? Author [facility] On track(2023 1:44 PM EDT) Shreya Adames, OTTONIEL Note: Patient acknowledges understanding of new diagnosis, plan of care, available resources and how to contact Nurse Navigator with any future questions or concerns. [facility] Ekaterina Rocha, OTTONIEL Note: Patient will be compliant with recommended breast imaging. [facility] Ekaterina Rocha, OTTONIEL Note: Patient will be compliant with monthly Self Breast Exams and is aware of to who to contact for any unusual or concerning findings. documented as of this encounter Visit Diagnoses Diagnosis Invasive ductal carcinoma of breast, female, left (HCC)- Primary History of breast cancer Personal history of malignant neoplasm of breast Well woman exam with routine gynecological exam Routine gynecological examination Cervical cancer screening Screening for malignant neoplasm of the cervix Screening for HPV (human papillomavirus) Special screening examination for human papillomavirus (HPV) Postmenopausal bleeding documented in this encounter Historical Medications * This list may reflect changes made after this encounter. predniSONE (DELTASONE) 10 mg Oral Tablet Take by mouth 2 times daily. added in this encounter Care Teams Ux Architect Relationship Specialty Start Date End Date Pranav Schmid MD PCP - General Family Medicine 01/30/16 Marco Herring MD [address] [facility] [place] [address] Medical Oncologist Internal Medicine-Hematology and Oncology 09/10/22 documented as of this encounter
--- OUTSIDE RECORDS SUMMARY | 2025-05-16 10:48 | XMS_ITS | Encounter Summary ---
Author Organization [place] [address] Care Team Providers Care Licensed Certified Orthotist Name Role Phone Pranav Schmid MD Primary Care Provider [phone] Marco Herring MD Unavailable [phone] Reason for Referral * Consultation (Routine) - Authorization Not Needed Specialty Diagnoses / Procedures Referred By Contac t Referred To Contact Gynecology Diagnoses Invasive ductal carcinoma of breast, female, left (HCC) Vaginal bleeding Procedures ME OFFICE/OUTPATIENT NEW MODERATE MDM 45 MINUTES Marco Herring MD [address] [place] [address] Phone: tel: fax: [facility] [address] [address] Phone: tel: fax: Referral ID Status Reason Start Date Expiration Date Visits Requested Visits Authorized [id number] Authorization Not Needed 04/20/2025 04/20/2026 99 99 Question Answer Is this for an abnormal pap? No Comments Vaginal bleeding Reason for Visit * Reason Onset Date Comments Symptom Call 04/20/2025 Vaginal bleeding Encounter Details Date Type Department Care Team (Late st Contact Info) Description 04/20/2025 Telephone [facility] Care [place] [address] Marco Herring MD [address] [place] [id number] Symptom Call (Vaginal bleeding ) Social History Tobacco Use Types Packs/Day Years [...] 1:22 PM TIFFANIET Joao Narvaez RN * Is the person blind or does he/she have serious difficulty seeing even when wearing glasses? Answer Date of Assessment Author No 06/04/2020 1:22 PM Joao Shaver RN * Does this person have serious difficulty walking or climbing stairs? Answer Date of Assessment Author No 06/04/2020 1:22 PM TIFFANIET Joao Narvaez RN * Does this person have difficulty dressing or bathing? Answer Date of Assessment Author No 06/04/2020 1:22 PM Joao Shaver RN * Because of a physical, mental or emotional condition, does this person have difficulty doing errands alone such as visiting a doctor's office or shopping? Answer Date of Assessment Author No 06/04/2020 1:22 PM Joao Shaver RN documented as of this encounter Mental Status * Because of a physical, mental or emotional condition, does this person have serious difficulty concentrating, remembering or making decisions? Answer Entry Date Author No 06/04/2020 1:22 PM Joao Shaver RN documented in this encounter Miscellaneous Notes * Telephone Encounter - Zahraa Cho RN - 04/26/2025 8:10 AM EDT Pt has appt with Dr. Chang' on 05/16. 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 Call placed to Rock who states she has a rash that she is seeing derm for today. Pt has been on several abx and steroids but rash is not clearing up- initially thought shingles but meds aren't working. Patient has had vaginal bleeding for 3 days, not saturating pads, light bleeding per patient. Patient agreeable to see superintendent institution- will place referral. Last saw Dr. Snow in 2021. * Telephone Encounter - Zahraa Cho RN - 04/20/2025 11:04 AM EDT Reviewing chart. * Telephone Encounter - Carla Pino NA - 04/20/2025 10:47 AM EDT Medical Oncology Clinic Symptom Call: Yes Primary Oncologist: Nevaeh Diagnoses: Current Treatment: Last date of Tx: 09/15/23 Last appt and provider: 03/02/25 Corrie Next scheduled office visit: 06/08/25 (rad onc follow up) Caller reports the patient has the following symptoms: Patient called asking to speak with someone in [facility]. Asked what doctor she sees and she said wanted her to see someone over there but she never had. Asked what she needed and she said that she went through menopause in 2021 and has not bled since. Said she started bleeding 3 days ago and it is getting increasingly heavier. Stated blood is bright red. Told patient I would send message over to Dr. Herring since they are not an active patient of [facility]. Symptoms started (date/time): 3 days ago [facility] (Y, N, N/A): yes What Location is the Patient seen at: ED Preferred call back number: [phone] Explained to the caller, if this is a medical emergency please call 911 or go to the nearest emergency room. Reason for call: Patient called asking to speak with someone in [facility]. Asked what doctor she sees and she said wanted her to see someone over there but she never had. Asked what she needed and she said that she went through menopause in 2021 and has not bled since. Said she started bleeding 3 days ago and it is getting increasingly heavier. Stated blood is bright red. Preferred call back number: [phone] documented in this encounter Plan of Treatment Upcoming Encounters Date Type Department Care Team (Late st Contact Info) Description 05/26/2025 9:30 AM EDT Clinical Support [facility] [address] [place] [address] [address] [place] [address] 06/06/2025 11:00 AM EDT Appointment [facility] [place] [address] Kasia Denton, PEGA DEVELOPER [address] [place] [phone] 06/08/2025 9:15 AM EDT Appointment [place] [address] Judi Krueger, LISE [address] [place] [address] [address] [place] [address] 12/01/2025 9:00 AM EST Appointment [place] [facility] [address] [facility] Kasia Denton, PEGA DEVELOPER [address] [place] [address] 12/01/2025 9:30 AM EST Appointment [facility] [address] [place] [address] Kasia Denton, PEGA DEVELOPER [address] [place] [address] Scheduled Referrals Name Type Priority Associated Diagnoses Orde r Schedule AMB REFERRAL TO OB-HOT IRON WORKER Outpatient Referral Routine Invasive ductal carcinoma of breast, female, left (HCC) Vaginal bleeding Ordered: 04/20/2025 documented as of this encounter Goals Goal Patient Goal Type Associated Problems Recent Progress Patient-Stated? Author [facility] On track(2023 1:44 PM EDT) Shreya Adames, RN Note: Patient acknowledges understanding of new diagnosis, plan of care, available resources and how to contact Nurse Navigator with any future questions or concerns. [facility] Ekaterina Rocha, OTTONIEL Note: Patient will be compliant with recommended breast imaging. [facility] Ekaterina Rocha, OTTONIEL Note: Patient will be compliant with monthly Self Breast Exams and is aware of to who to contact for any unusual or concerning findings. documented as of this encounter Visit Diagnoses Diagnosis Invasive ductal carcinoma of breast, female, left (HCC)- Primary Vaginal bleeding Other specified noninflammatory disorder of vagina documented in this encounter Care Teams Licensed Certified Orthotist Relationship Specialty Start Date End Date Pranav Schmid MD PCP - General Family Medicine 01/30/16 Marco Herring MD [address] [place] [address] [place] [address] Medical Oncologist Internal Medicine-Hematology and Oncology 09/10/22 documented as of this encounter
--- OUTSIDE RECORDS SUMMARY | 2025-05-16 10:48 | XMS_ITS | Encounter Summary ---
Author Organization [place] [address] Care Team Providers Care Terminal Make Up Operator Name Role Phone Pranav Schmid MD Primary Care Provider [phone] Marco Herring MD Unavailable [phone] Encounter Details Date Type Department Care Team (Late st Contact Info) Description 04/11/2025 Orders Only [facility] Physical Therapy [facility] [address] [place] [address] Jessica Marin, PT Social History Tobacco Use Types Packs/Day Years [...] Description 05/26/2025 9:30 AM EDT Clinical Support [facility] [address] [place] [address] [place] [phone] 06/06/2025 11:00 AM EDT Appointment [facility] [place] [address] Kasia Denton SALES ACCOUNT SPECIALIST [address] [place] [address] 06/08/2025 9:15 AM EDT Appointment [facility] [place] [address] Judi Krueger, RESEARCH MANAGER [address] [place] [address] [address] [place] [address] 12/01/2025 9:00 AM EST Appointment [facility] [address] Tay [facility] Kasia Denton SALES ACCOUNT SPECIALIST [address] [place] [address] 12/01/2025 9:30 AM EST Appointment [facility] [place] [address] Kasia Denton SALES ACCOUNT SPECIALIST [address] [place] [address] documented as of this encounter Goals Goal Patient Goal Type Associated Problems Recent Progress Patient-Stated? Author [facility] Breast Health On track(2023 1:44 PM EDT) Shreya Adames, RN Note: Patient acknowledges understanding of new diagnosis, plan of care, available resources and how to contact Nurse Navigator with any future questions or concerns. [facility] Breast Health No Ekaterina Medley, OTTONIEL Note: Patient will be compliant with recommended breast imaging. [facility] Ekaterina Rocha, OTTONIEL Note: Patient will be compliant with monthly Self Breast Exams and is aware of to who to contact for any unusual or concerning findings. documented as of this encounter Visit Diagnoses Not on filedocumented in this encounter Care Teams Terminal Make Up Operator Relationship Specialty Start Date End Date Pranav Schmid MD PCP - General Family Medicine 01/30/16 Marco Herring MD [address] [place] [address] [place] [address] Medical Oncologist Internal Medicine-Hematology and Oncology 09/10/22 documented as of this encounter
--- OUTSIDE RECORDS SUMMARY | 2025-05-16 10:48 | XMS_ITS | Clinical Summary ---
Author Organization Healthcare Address [address] [place] [address] Care Team Providers Care Enterprise Application Administrator Name Role Phone Pranav Schmid MD Primary Care Provider [phone] Allergies Active Allergy Reactions Criticality Noted Date Comments Codeine Other - please docum ent in the comment field Low 08/22/2022 agitation Oseltamivir Other - please docum ent in the comment field Low 06/02/2020 Penicillins Other - please docum ent in the comment field Low 06/03/2020 Pt cannot remember her reaction Medications hydroCHLOROthiaz tessa (Microzide) 12.5 MG capsule Take 12.5 mg by mouth 1 (one) time each day. Active ibuprofen 600 MG tablet Take by mouth every 6 (six) hours if needed for mild pain. 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 Social History Tobacco Use Types Packs/Day Years Used Date Smoking Tobacco: Never Smokeless Tobacco: Never Tobacco Cessation:Counseling Given: Not Answered Alcohol Use Standard Drinks/Week Comments Never 0 (1 standard drink = 0.6 oz pur e alcohol) Comments Unknown Sex and Gender Information Value Date Recorded Sex Assigned at Not on file Legal Sex Female 8:47 PM EDT Gender Identity Not on file Sexual Orientation Not on file Last Filed Vital Signs Vital Sign Reading Time Taken Comments Blood Pressure 130/82 08/22/2022 11:18 AM EDT Pulse - - Temperature - - Respiratory Rate - - Oxygen Saturation - - Inhaled Oxygen Concentration - - Weight 77.1 kg (170 lb) 08/22/2022 11:18 AM EDT Height 167.6 cm (5' 6 ) 08/22/2022 11:18 AM EDT Body Mass Index 27.44 08/22/2022 11:18 AM EDT Plan of Treatment Health Maintenance Due Date Last Done Comments [facility]-Depression Screening 1975 [facility]-HIV Screening 1975 [facility]-Hepatitis C Screening 1975 [facility]-Medicare Annual Wellness (AWV) 1975 [facility]-/Child/Adol SDOH Screenings 1975 [facility]- SDOH Screenings 1993 [facility]-Adult SDOH Screenings 1993 [facility]-DTaP,Tdap,and Td Vaccine s (1 - Tdap) 1994 [facility]-Hepatitis B Vaccines (1 of 3 - 19+ 3-dose series) 1994 [facility]-Pap Smear 06/10/2000 06/10/1997, 01/06/1997 [facility]-Cervical Cancer Screening 2005 [facility]-HPV/Cotest 2005 06/10/1997, 01/06/1997 CT Colonography 2020 Colonoscopy 2020 FIT-DNA 2020 FIT 2020 FOBT 2020 Sigmoidoscopy 2020 [facility]-Colorectal Cancer Screening 2020 CPS-UOUVH-12 Vaccine ( season) 2024 [facility]-Influenza Vaccine (#1) 2025 [facility]-Zoster Vaccines (1 of 2) 2025 [facility]-Obesity Intervention Completed 08/22/2022 HPV Vaccines Aged Out No longer eligi ble based on patient's age to complete this topic [facility]-HIB Vaccines Aged Out No longer e ligible based on patient's age to complete this topic [facility]-Hepatitis A Vaccines Aged Out No longer eligible based on patient's age to complete this topic [facility]-IPV Vaccines Aged Out No longer e ligible based on patient's age to complete this topic [facility]-Pneumococcal Vaccine: Pediatrics (0 to 5 Years) and At-Risk Patients (6 to 49 Years) Aged Out No longer eligible b ased on patient's age to complete this topic [facility]-Rotavirus Vaccines Aged Out No lo nger eligible based on patient's age to complete this topic Procedures Procedure Name Priority Date/Time Associated Diagnosis Comments CYTO DATA CONVERSION Routine 06/10/1997 12:00 AM EDT from Last 3 Months or Most Recently Relevant to Health Maintenance Results * Cytology (06/10/1997 12:00 AM EDT) 06/10/1997 06/13/1997 Narrative [facility] - 06/15/1997 12:00 AM EDT [facility] MR #: [id number] [facility] [place], [place] [address] 1975 (Age: 21) FW Collect Date: 06/10/1997 00:00 Receipt Date: 06/13/1997 00:00 Page 1 DEPARTMENT OF PATHOLOGY AND LABORATORY MEDICINE CYTOPATHOLOGY REPORT Email: [email or web address] * Converted Case * This report may not match the original report format ATTENDING MD/Practitioner: Flash Lee MD Service: OB Location: Reported: 06/15/1997 00:00 Collected: 06/10/1997 00:00 INTERPRETATION CERVICAL SCRAPE/ENDOCERVICAL BRUSH NO DYSPLASTIC OR MALIGNANT CELLS SEEN. INFLAMMATORY CHANGE. PREDOMINANCE OF COCCOBACILLI CONSISTENT WITH SHIFT IN VAGINAL NATALIA. SATISFACTORY FOR INTERPRETATION. Electronically Signed Out VALENTINE Blair (ASCP) Marie Hinojosa MD Cervical cytology is a screening test primarily for squamous cancers and precursors and has associated false negative and positive results. New technologies such as liquid based sampling may decrease but will not eliminate all false negative results. Regular screening and follow-up of unexplained clinical signs and symptoms are recommended to minimize false negative results. Please see the ASCCP website (www.asccp.org) for followup recommendations. If HPV testing was requested, correlation with the results is suggested (please call Microbiology at [phone] for results). CLINICAL INFORMATION: Menstrual History: {Not Provided} Date of Last Menstrual Period: {Not Provided} SPECIMEN DESCRIPTION: A: CERVICAL/VAGINAL SMEAR, PAP ICD: F: {Not Entered} SNOMED CODES: 1; [id number] C03880 E1002 In cases where a pathologist has signed out the report, the service has been rendered in part by a resident. The signing pathologist has performed and is responsible for the reported pathologic evaluation. us Historical Provider MD LAB PATHOLOGY ORDERABLES Final Result SUNQUEST from Last 3 Months or Most Recently Relevant to Health Maintenance Insurance [employer] MEDICA[employer] MEDICARE Care Teams Enterprise Application Administrator Relationship Specialty Start Date End Date Pranav Schmid MD PCP - General 03/16/21
--- OUTSIDE RECORDS SUMMARY | 2025-05-16 10:48 | XMS_ITS | Encounter Summary ---
Author Organization [place] [address] Care Team Providers Care Drum Maker Name Role Phone Pranav Schmid MD Primary Care Provider [phone] Marco Herring MD Unavailable [phone] Reason for Visit * Reason Onset Date Comments Colonoscopy 04/20/2025 Encounter Details Date Type Department Care Team (Late Contact Info) Description 04/20/2025 Telephone SEP GASTRO [facility] [address] [place] [address] [address], [address] [place] [address] Meri Wu MD [address] [place] [address] Colonoscopy Social History Tobacco Use Types Packs/Day Years [...] Author No 06/04/2020 1:22 PM EDT Joao Narveaz RN documented in this encounter Miscellaneous Notes * Telephone Encounter - Lula Nicole - 04/20/2025 3:50 PM EDT pt has a rash and is being told by DERM to r/s, will cb to r/s documented in this encounter Plan of Treatment Upcoming Encounters Date Type Department Care Team (Late st Contact Info) Description 05/26/2025 9:30 AM EDT Clinical Support [facility] [address] [facility] [address] [place] [address] 06/06/2025 11:[address] [facility] [place] [address] Kasia Denton, ADY [address] [place] [address] 06/08/2025 9:15 AM EDT Appointment [facility] [place] [address] Judi Krueger, SAUSAGE MAKER [address] [facility] [address] 12/01/2025 9:00 AM EST Appointment [facility] [place] [address] Kasia Denton, PUMP SERVICER HELPER [address] [place] [address] 12/01/2025 9:30 AM EST Appointment [facility] [address] [place] [address] Kasia Denton, PUMP SERVICER HELPER 600 [place] [address] documented as of this encounter Goals Goal Patient Goal Type Associated Problems Recent Progress Patient-Stated? Author [facility] On track(2023 1:44 PM EDT) Shreya Adames, OTTONIEL Note: Patient acknowledges understanding of new diagnosis, plan of care, available resources and how to contact Nurse Navigator with any future questions or concerns. [facility] Ekaterina Rocha, OTTONIEL Note: Patient will be compliant with recommended breast imaging. [facility] Ekaterina Rocha, OTTONIEL Note: Patient will be compliant with monthly Self Breast Exams and is aware of to who to contact for any unusual or concerning findings. documented as of this encounter Visit Diagnoses Not on filedocumented in this encounter Care Teams Drum Maker Relationship Specialty Start Date End Date Pranav Schmid MD PCP - General Family Medicine 01/30/16 Marco Herring MD [address] [place] [address] [place] [address] Medical Oncologist Internal Medicine-Hematology and Oncology 09/10/22 documented as of this encounter
--- OUTSIDE RECORDS SUMMARY | 2025-05-16 10:48 | XMS_ITS | Encounter Summary ---
Author Organization [facility] [place] [address] Care Team Providers Care Metal Box Maker Name Role Phone Pranav Schmid MD Primary Care Provider [phone] Marco Herring MD Unavailable [phone] Encounter Details Date Type Department Care Team (Latest Contact Info) Description 04/13/2025 Travel Social History Tobacco Use Types Packs/Day Years [...] Assessment Author No 06/04/2020 1:22 PM EDT Brice, Joao C, RN * Because of a physical, mental [...] Clinical Support [facility] [address] [facility] [address] [place] [address] 06/06/2025 11:00 AM EDT Appointment [facility] [place] [address] Kasia Denton, INVENTORY ASSOCIATE [address] [place] [address] 06/08/2025 9:15 AM EDT Appointment [facility] [place] [address] Judi Krueger, LISE [address] [place] [address] [place] [address] 12/01/2025 9:00 AM EST Appointment [facility] [address] [place] [id number] Kasia Denton, INVENTORY ASSOCIATE 600 [place] [address] 12/01/2025 9:30 AM EST Appointment [facility] [place] [address] Kasia Denton, INVENTORY ASSOCIATE 600 [place] [address] documented as of this encounter Goals Goal Patient Goal Type Associated Problems Recent Progress Patient-Stated? Author [facility] Breast [facility] On track(2023 1:44 PM EDT) No Shreya Escobar, RN Note: Patient acknowledges understanding of new diagnosis, plan of care, available resources and how to contact Nurse Navigator with any future questions or concerns. [facility] No Ekaterina Medley, OTTONIEL Note: Patient will be compliant with recommended breast imaging. [facility] No Ekaterina Medley, OTTONIEL Note: Patient will be compliant with monthly Self Breast Exams and is aware of to who to contact for any unusual or concerning findings. documented as of this encounter Visit Diagnoses Not on filedocumented in this encounter Care Teams Metal Box Maker Relationship Specialty Start Date End Date Pranav Schmid MD PCP - General Family Medicine 01/30/16 Marco Herring MD [address] [place] [address] [place] [address] Medical Oncologist Internal Medicine-Hematology and Oncology 09/10/22 documented as of this encounter
--- OUTSIDE RECORDS SUMMARY | 2025-05-16 10:48 | XMS_ITS | Encounter Summary ---
Author Organization [place] [address] Care Team Providers Care Fish Hatchery Worker Name Role Phone Pranav Schmid MD Primary Care Provider [phone] Marco Herring MD Unavailable [phone] Reason for Visit * Reason Onset Date Comments Other 04/14/2025 Encounter Details Date Type Department Care Team (Late Contact Info) Description 04/14/2025 Telephone SEP GASTRO [facility] [address]RD [place] [address] Pily Masterson, HEMA Other Social History Tobacco Use Types Packs/Day Years [...] Joao Narvaez RN documented in this encounter Miscellaneous Notes * Telephone Encounter - Pily Masterson RMA - 04/14/2025 9:21 AM EDT Pt is scheduled for a Colonoscopy with SC on 04-25. She has a rash that is spreading. The PCP doesn't know what it is. Pt is seeing a Front Desk Team Member on 04-20. I asked her to call us back on the and if she is contagious, she will need to reschedule. She is fine with the plan. documented in this encounter Plan of Treatment Upcoming Encounters Date Type Department Care Team (Late st Contact Info) Description 05/26/2025 9:30 AM EDT Clinical Support [facility] [address] [place] [address] 06/06/2025 11:00 AM EDT Appointment [facility] [place] [address] Kasia Denton, ADY [address] [place], [place] [id number] 06/08/2025 9:15 AM EDT Appointment [place] [address] Judi Krueger NP [address] [place] [address] [place] [address] 12/01/2025 9:00 AM EST Appointment [facility] [place] [id number] Kasia Denton, LIFE ENRICHMENT SPECIALIST 600 [facility] [place] [address] 12/01/2025 9:30 AM EST Appointment [facility] Women's Wellness [facility] [place] [address] Kasia Denton, LIFE ENRICHMENT SPECIALIST 600 [place] [address] documented as of this encounter Goals Goal Patient Goal Type Associated Problems Recent Progress Patient-Stated? Author [facility] On track(2023 1:44 PM EDT) Shreya Adames, RN Note: Patient acknowledges understanding of new diagnosis, plan of care, available resources and how to contact Nurse Navigator with any future questions or concerns. [facility] Ekaterina Rocha, OTTONIEL Note: Patient will be compliant with recommended breast imaging. [facility] Ekaterina Rocha, OTTONIEL Note: Patient will be compliant with monthly Self Breast Exams and is aware of to who to contact for any unusual or concerning findings. documented as of this encounter Visit Diagnoses Not on filedocumented in this encounter Care Teams Fish Hatchery Worker Relationship Specialty Start Date End Date Pranav Schmid MD PCP - General Family Medicine 01/30/16 Marco Herring MD 1 [facility] [place] [address] Medical Oncologist Internal Medicine-Hematology and Oncology 09/10/22 documented as of this encounter
--- OUTSIDE RECORDS SUMMARY | 2025-05-16 10:48 | XMS_ITS | Encounter Summary ---
Author Organization [place] [address] Care Team Providers Care Metal Hanging Helper Name Role Phone Pranav Schmid MD Primary Care Provider [phone] Marco Herring MD Unavailable [phone] Encounter Details Date Type Department Care Team (Late st Contact Info) Description 08/13/2022 Orders Only [facility] [place] [address] Gillian Boudreaux MD [address] [place] [address] [place] [address] Social History Tobacco Use Types Packs/Day Years Used Date Smoking Tobacco: Never Smokeless Tobacco: Never Alcohol Use Standard Drinks/Week Comments No 0 (1 standard drink = 0.6 oz pur e alcohol) Sexually Active Control Partners Comments Not Currently [...] suspected to have Coronavirus/COVID-19? No / Unsure 08/15/2022 11:13 AM EDT documented as of this encounter Functional [...] 9:30 AM EDT Clinical Support SEP [facility] Edg [address] [facility] [address] [place] [address] 06/06/2025 11:00 AM EDT Appointment [facility] [place] [address] Kasia Denton, QUALITY CONTROL INDUSTRIAL ENGINEER [address] [place] [address] 06/08/2025 9:15 AM EDT Appointment [facility] RAD ONC [place] [id number] Judi Krueger NP [address] [place] [address] [place] [address] 12/01/2025 9:00 AM EST Appointment [facility] [place] [address] Kasia Denton, QUALITY CONTROL INDUSTRIAL ENGINEER [address] [place] [address] 12/01/2025 9:30 AM EST Appointment [facility] Women's Wellness [facility] [place] [address] Kasia Denton APRN [address] [place], [place] [id number] documented as of this encounter Procedures Procedure Name Priority Date/Time Associated Diagnosis Comments NEOGENOMICS BREAST PANEL (3 STAIN) Routine 08/13/2022 11:49 AM EDT documented in this encounter Results * NEOGENOMICS BREAST PANEL (3 STAIN) (08/13/2022 11:49 AM EDT) 08/13/2022 11:4 9 AM EDT Narrative [facility] - 08/19/2022 1:24 PM EDT Requesting Provider: PRANAV GUZMAN [place] Specimen = [id number] Gillian Boudreaux MD PATHOLOGY ORDERABLES Final Result [facility] 1 [place] [address] documented in this encounter Visit Diagnoses Not on filedocumented in this encounter Additional Health Concerns Infection Onset Date Last Indicated Resolved Time R/O C-Diff 10/14/2022 10/14/2022 10/15/2022 4:16 AM EST R/O C-Diff 12/04/2022 12/04/2022 12/04/2022 3:18 PM EST documented as of this encounter Care Teams Metal Hanging Helper Relationship Specialty Start Date End Date Pranav Schmid MD PCP - General Family Medicine 01/30/16 Marco Herring MD 1 [facility] [place] [address] Medical Oncologist Internal Medicine-Hematology and Oncology 09/10/22 documented as of this encounter
--- OUTSIDE RECORDS SUMMARY | 2025-05-16 10:48 | XMS_ITS | Encounter Summary ---
Author Organization [place] [address] Care Team Providers Care Physics Department Chair Name Role Phone Pranav Schmid MD Primary Care Provider [phone] Marco Herring MD Unavailable [phone] Reason for Visit * Reason Onset Date Comments Appointment Needed 04/14/2025 Consult Encounter Details Date Type Department Care Team (Late st Contact Info) Description 04/14/2025 Telephone SEP Gen Surg [facility] [address] [facility] [address] [place] [address] Alexandra Rivas, FLARING MACHINE OPERATOR [address] [facility] [address] [place] [address] Appointment Needed (Consult ) Social History Tobacco Use Types Packs/Day [...] Author No 06/04/2020 1:22 PM EDT Joao Navraez RN documented as of this encounter Mental Status * Because of a physical, mental or emotional condition, does this person have serious difficulty concentrating, remembering or making decisions? Answer Entry Date Author No 06/04/2020 1:22 PM EDT Joao Narvaez RN documented in this encounter Miscellaneous Notes * Telephone Encounter - Imani Laboy RMA - 04/14/2025 9:08 AM EDT Patient called back. She is dealing with a skin infection right now and will call back when ready to schedule a consult. * Telephone Encounter - Kristen Matias - 04/14/2025 9:01 AM EDT 04/14/25 @9[address] [facility] regarding paper referral for cholelithiasis. Please schedule consult documented in this encounter Plan of Treatment Upcoming Encounters Date Type Department Care Team (Late st Contact Info) Description 05/26/2025 9:30 AM EDT Clinical Support SEP Women[facility] Edg [address] [facility] [address] [place] [address] 06/06/2025 11:00 AM EDT Appointment [facility] [place] [address] Kasia Denton, FLARING MACHINE OPERATOR 600 [place] [address] 06/08/2025 9:15 AM EDT Appointment [place] [address] Judi Krueger, LISE [address] [place] [address] DR [place] [address] 12/01/2025 9:00 AM EST Appointment [facility] [address] Kasia Denton, FLARING MACHINE OPERATOR 600 [place] [address] 12/01/2025 9:30 AM EST Appointment [facility] Women's Wellness [facility] [address] [place] [address] Kasia Denton, FLARING MACHINE OPERATOR 600 [facility] [place] [address] documented as of this encounter Goals Goal Patient Goal Type Associated Problems Recent Progress Patient-Stated? Author Breast [facility] Breast Health On track(2023 1:44 PM EDT) Shreya Adames, RN Note: Patient acknowledges understanding of new diagnosis, plan of care, available resources and how to contact Nurse Navigator with any future questions or concerns. Breast [facility] Breast Health No Ekaterina Medley, OTTONIEL Note: Patient will be compliant with recommended breast imaging. Breast [facility] Breast Health No Ekaterina Medley, OTTONIEL Note: Patient will be compliant with monthly Self Breast Exams and is aware of to who to contact for any unusual or concerning findings. documented as of this encounter Visit Diagnoses Not on filedocumented in this encounter Care Teams Physics Department Chair Relationship Specialty Start Date End Date Pranav Schmid MD PCP - General Family Medicine 01/30/16 Marco Herring MD [address] [facility] [place] [address] Medical Oncologist Internal Medicine-Hematology and Oncology 09/10/22 documented as of this encounter
--- OUTSIDE RECORDS SUMMARY | 2025-05-16 10:48 | XMS_ITS ---
Author Organization [facility] Address [address] [place] [address] Phone Care Team Providers Care Hose Inspector Name Role Phone Pranav Schmid MD Primary Care Provider [phone] Marco Herring MD Unavailable [phone] Active Problems Problem Noted Date Diagnosed Date Elevated CO2 level 06/14/2024 Invasive ductal carcinoma of breast, female, lef t 06/14/2024 Malaise and fatigue 06/14/2024 Dermatitis due to unknown cause 12/15/2023 Vasomotor flushing 12/15/2023 Mouth sore 01/28/2023 Diarrhea 01/28/2023 Encounter for antineoplastic chemotherapy 2022 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 Patient adamant that left breast smaller than right normally. Pictures were shared from her phone 2 days prior where left breast is significantly larger than right. Agrees swelling is improved some since then. Retraction of lumpectomy scar noted and new. No LAD appreciated or arm edema. Diganostic imaging from 12/02/24 reviewed and normal. - Will repeat left diagnostic mammogram and ultrasound if needed. -Educated patient that this could be a sign of late radiation effect causing breast lymphedema especially in light of new activity being done outdoors and bending over doing yard work. Orders: MM MAMMO DIGITAL SONNY DIAGN LEFT; Future MM US BREAST LIMITED LEFT; Future Current Treatment and Therapy Plans No current plan information found. Other Current Plans ONC trastuzumab (6) + pertuzumab (420) maintenance Q21D (NO LOADING DOSE)* Plan Start Date:01/28/2023 Plan Provider:Marco Herring MD Linked Problems History of breast cancer Treatment Medications Current Day (Day 1 , Cycle 12 - Planned for 09/15/2023) pertuzumab (PERJETA) chemo i nfusion (MAINTENANCE)trastuzumab-anns (KANJINTI) chemo infusion pertuzumab (PERJETA) 420 mg in sodium chloride 0.9 % 250 mL chemo infusiontrastuzumab-anns (KANJINTI) 490 mg in sodium chloride 0.9 % 250 mL chemo infusion ONCSEH hydration + pre-meds + electrolytes* Plan Start Date:10/01/2022 Plan Provider:Rosa Mills APRN Linked Problems History of breast cancer Treatment Medications Current Day (Addit ional Day, Cycle 12 - Planned for 07/09/2023) Next Day (Additional Day, Cycle 12 - Planned for 08/07/2023) No medications scheduled. No medications schedul ed. No medications scheduled. Past Treatment and Therapy Plans ONCOLOGY TREATMENT Plan Name Start Date Discontinue Date Treatment Medications Discontinue Reason Plan Provider Cycles ONC DOCEtaxel + CARBOplatin + trastuzumab + pertuzumab + N (TCHP) Q21D x 6 09/24/20 22 01/28/2023 CARBOplatin (PARAPLATIN) chemo infusion (by AUC)DOCEtaxel (TAXOTERE) chemo infusion (< 180 mg)pertuzumab (PERJETA) chemo infusion (LOAD)pertuzum ab (PERJETA) chemo infusion (MAINTENANCE)t rastuzumab-augustina s (KANJINTI) chemo infusion Therapy Complete Marco Herring MD 6 of 6 cycles started Treatment Summaries History of breast cancer* Cancer Treatment Plan and Summary Provided by Breast Server Density General Information Patient name Rock Morris Date of 1975 Age 48 y.o. Care Team Medical Oncologist Dr. Kash Herring Surgeon Dr. Andre Morley Radiation Oncologist Dr. 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 An Uncertain variant was also identified in PDGFRA Additional Screening Recommendations Ms. 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 It is estimated that 1% to 2% of thepopulation has a mutation in one copy of the MUTYH gene. These individuals do not have MAP. Tobacco use Former Smoker. Recommended for LDCT lung cancer screening annually. Stopped smoking when? Treatment Summary Surgery 03/06/24 - Left breast segmentectomy with sentinel lymph node dissection; Right breast segmentectomy Chemotherapy ONC DOCEtaxel + CARBOplatin + trastuzumab + pertuzumab + N (TCHP) Q21D x 6 (cycle 1 day 1) Radiation therapy Adjuvant hypofractionated external beam radiotherapy to a total dose of 5256 cGy in 20 fractions; 4256 cGy to the left breast +1000 cGy seroma boost. 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 Luis Morley 08/26/2022 - Genetics A pathogenic variant was identified in MUTYH (CARRIER of AR polyposis). An uncertain variant was also identified in PDGFRA. 09/24/2022 - Chemotherapy ONC DOCEtaxel + CARBOplatin + trastuzumab + pertuzumab + N (TCHP) Q21D x 6 (cycle 1 day 1), 03/06/2023 Surgery A. Left axillary sentinel lymph node, excision: -Three lymph nodes, negative for carcinoma, one with biopsy site change (0/3). B. Left breast, partial mastectomy: - No evidence of residual invasive ductal carcinoma, status post neoadjuvant chemotherapy. - Ductal carcinoma in situ, high nuclear grade present - Background breast with small fibroadenomas. - DCIS is focally present at the lateral margin. C. Right breast, partial mastectomy: - Lobular carcinoma in situ, classic type. - Small intraductal papilloma and fibroadenomas. - Negative for invasive carcinoma and residual ductal atypia. 04/10/2023 Surgery Left breast re excision - No evidence of residual invasive ductal carcinoma or in-situ ductal carcinoma. 06/02/2023 - 06/27/2023 Radiation Tx Adjuvant hypofractionated external beam radiotherapy to a total dose of 5256 cGy in 20 fractions; 4256 cGy to the left breast +1000 cGy seroma boost. Deep inspiration breath-hold (CALDERON H) to limit radiation dose to heart. Primary radiation oncologist,Dr. Valle. Stage Clinical Stage IIA (cT2, cN0, M0, G3, ER-, MT-, Her2+) Pathologic Stage y (pTis(DCIS), pN0, M0, ER-, MT-, Her2+) Breast Cancer Surveillance Recommendations Follow-up Recommendations Surgeon Visits Every 6 months x 2, then annually x 5 years Medical Oncology Visits Every 3-6 months, or as directed Radiation Oncology Visits Every 3-6 months, or as directed Imaging Diagnostic mammogram annually x 5 years then screening yearly. General Health Continue follow-up with PCP and CONSULTING MANAGER as directed Recommendations Self-care plan: What you can do to stay healthy after treatment for breast cancer Cancer treatments may increase your chance of developing other health problems years after you havecompleted treatment. The purpose of this self-care plan is to inform you about what steps you can take to maintain good health after cancer treatment, including coping with side effects of treatment,reducing the risk of cancer returning, and watching for signs of cancer returning or of a new cancer. Keep in mind that every person treated for breast cancer is different and that these recommendations are not intended to be a substitute for the advice of a doctor or other healthcare professional.Please use these recommendations to talk with your doctor and healthcare team about an appropriate follow up care plan for you. You should have a medical history and physical exam that is focused on detecting signs of cancer recurrence or of new cancers as directed by your physician. The frequency of these exams may vary depending on the stage of cancer and other risk factors. If you had breast cancer once, there is a chance that it may come back or spread to other parts of your body. This is important because most recurrent breast cancer is suspected or found by women themselves, and the majority of recurrences are detected between scheduled visits. After treatment, if you feel something isn???t right with your body,see your regular doctor, physician machine operator assistant, or nurse practitioner. If what you are feeling is urgent, go to an Urgent Care or Medical Walk-in Clinic. Tell the medical provider you had cancer and show them a copy of your cancer treatment summary. Become aware of your personal breast health, this includes monthly self-breast exams. Signs and symptoms to report for potential local recurrence Change in size, shape or contour of the lumpectomy breast Nipple discharge that is clear or blood tinged New onset of breast pain A new lump Thickening or a lump in breast tissue or on the chest wall after a mastectomy Changes in the skin including dimpling, scaly appearance, rash, redness or discoloration on the breast or chest wall A lump or thickening in the underarm area Monitoring for potential regional or distant recurrence New lump or thickening in the area above the collarbone Chronic bone pain or tenderness in an area Chest pain with shortness of breath Chronic cough Persistent abdominal pain or abdominal swelling Headaches, dizziness, fainting or rapid changes in vision Increasing fatigue unrelated to treatments Inability to control urine or bowels Persistent nausea or loss of appetite Changes in weight, especially weight loss Potential late effects of treatment After surgery you may experience numbness, weakness, loss of the range of motion and/or swelling (lymphedema) in the affected arm After chemotherapy/biotherapy you may experience fatigue, weight gain, early menopause, numbness and tingling in your hands and feet, cognitive dysfunction, sexual dysfunction, psychosocial distress,osteoporosis, or cardiac dysfunction if you received an anthracycline or trastuzumab After radiation therapy you may experience breast pain, fibrosis in the affected breast, or changesin the shape or size of the affected breast LIFE AFTER CANCER TREATMENT Managing fatigue Fatigue is one of the most common complaints of cancer survivors. Here are some ideas to help you manage your fatigue. Plan your day. Be active at the time of day you feel most alert and energetic. Save you energy by planning how you do things. For example sit on a stool when you cook or wash dishes. Take short naps or rest breaks Try to go to sleep and wake up at the same time every day Do what you enjoy but try to focus on interests that don???t tire you out. Let others help you. Choose how to spend your energy. Think about joining a support group Emotional difficulties Cancer survivors often experience a variety of positive and negative emotions, including relief, a sense of gratitude to be alive, fear of recurrence, anger, guilt, depression, anxiety, and isolation. Cancer survivors, caregivers, family, and friends may also experience post-traumatic stress disorder, an anxiety disorder that may develop after experiencing an extremely frightening or life-threatening situation. Each person???s post-treatment experience is different. For example, some survivors struggle with negative emotional effects of the cancer while others say that they have a renewed, positive outlook on life because of the cancer. Talk with a healthcare provider about your concerns Think about joining a support group Regular physical exercise Sexuality after breast cancer Breast cancer has changed many things in your life. One of the potential changes may be in the areaof your return to normal sexual function. Breast cancer and its treatment may alter the way you feel about your body, threatening your sense of femininity. Some women may have concerns about their sexual attractiveness to their partner. These feelings are normal. It is important to include your part ner when viewing the incisional area even though it may be a difficult time. Remember, you are still the same loving person your partner selected and surgery did not change that. During treatment you may have experienced fatigue and side effects from treatments that may have affected sexual functioning. These are normal interruptions that will resolve after treatments end. Chemotherapy can create additional side effects which occur when ovarian function is affected. This can cause vaginal dryness and lack of sexual desire. A longer period of time may be required for sexual arousal. Guidelines for a Healthy Lifestyle Cut down on how much alcohol you drink. Research shows that drinking alcohol increases your chancesof getting certain types of cancers. Maintain a healthy weight. Eating well and staying active can help you reach a healthy weight and stay there. Obesity is a risk factor for developing breast cancer and for breast cancer recurrence. Eat well. Healthy food choices may help reduce the risk of cancer or recurrence. Talk with your doctor or a dietitian to find out about any special dietary needs that you may have. The [employer] and the [employer] have developed similar diet and fitness guidelines that may help reduce the risk of cancer: Eat a plant-based diet that includes at least 5-9 servings of fruit and vegetables daily. Try to include beans in your diet, and eat whole grains (such as cereals, breads, and pasta) several times daily. Choose foods low in fat and salt. Exercise and stay active. Research suggests that staying active after cancer can help lower the risk of recurrence and lead to longer survival. Moderate exercise (walking, biking, swimming) for about30 minutes every - or almost every - day can: Reduce anxiety and depression Improve mood and boost self-esteem Reduce fatigue, nausea, pain, and diarrhea
--- OUTSIDE RECORDS SUMMARY | 2025-05-16 10:48 | XMS_ITS | Encounter Summary ---
Author Organization [place] [address] Care Team Providers Care Election Judge Name Role Phone Pranav Schmid MD Primary Care Provider [phone] Marco Herring MD Unavailable [phone] Reason for Visit * Reason Onset Date Comments Advice Only 03/01/2025 Encounter Details Date Type Department Care Team (Late Contact Info) Description 03/01/2025 Telephone [facility] [place] [address] Jennifer Zheng RN Advice Only Social History Tobacco Use Types Packs/Day Years [...] Author No 06/04/2020 1:22 PM EDT Joao Narvaez, RN * Is the person blind or [...] encounter Miscellaneous Notes * Telephone Encounter - Ekaterina Medley RN - 03/02/2025 11:32 AM EDT Patient called [facility], she is unable to send pictures and would like to schedule with PARAMJIT, scheduled for this afternoon with PARAMJIT. * Telephone Encounter - Ekaterina Medley RN - 03/02/2025 11:12 AM EDT Discussed with Denver Pisano APRN- patient may send new pictures or she may come in this afternoon- called patient, she prefers to start with sending pictures, she will need to find a ride if she comes in later. David will follow. * Telephone Encounter - Ekaterina Medley RN - 03/02/2025 10:59 AM EDT Patient called David- has now also formed a new area underneath left breast that is blotchy and red and states she is not feeling well, having nausea and fatigue, denies fever; pictures sent yesterday. PARAMJIT - please advise. * Telephone Encounter - Jennifer Zheng RN - 03/01/2025 11:28 AM EDT Kasia, Please see pics and advise. Thank you! * Telephone Encounter - Jennifer Zheng RN - 03/01/2025 11:15 AM EDT Patient called into the breast center with complaint of Left breast bothering her for approximately 3-4 weeks, maybe a little longer. She is a breast cancer patient with L IDC/DCIS and right LCIS/ADH. She is status post left breast segmentectomy, SLND and right breast segmentectomy with Dr. Morley. She later had a left breast re-excision. She states it has been swelling over the last couple weeks and today feels that it is twice the size of her right breast. She also states she has a slightly swollen reddened area on her abdomen below her left breast. She states that she does not think that she has been febrile however she has hot flashes so she says its hard to tell. No complaints of ch ills or drainage, but states it might be slightly warm to touch. Pt had a negative bilateral diagnostic mammogram on 12/02/24 and saw Kasia for follow up. Sent patient a Contact At Once! message requesting some pictures. Will monitor and wait for the photos. documented in this encounter Plan of Treatment Upcoming Encounters Date Type Department Care Team (Late st Contact Info) Description 05/26/2025 9:30 AM EDT Clinical Support [facility] [address] [place] [address] 06/06/2025 11:00 AM EDT Appointment [facility] [place] [address] Kasia Denton, PUMP HOUSE ENGINEER [address] [place] [address] 06/08/2025 9:15 AM EDT Appointment [facility] [place] [address] Judi Krueger NP [address] [place] [address] [place] STUART [id number] 12/01/2025 9:00 AM EST Appointment [facility] [place], [place] [address] Kasia Denton, [employer]MP HOUSE ENGINEER [address] [facility] [place] [address] 12/01/2025 9:30 AM EST Appointment [facility] [place], [facility] Kasia Denton, [employer] HOUSE ENGINEER [address] [place] [phone] documented as of this encounter Goals Goal Patient Goal Type Associated Problems Recent Progress Patient-Stated? Author [facility] On track(2023 1:44 PM EDT) Shreya Adames, OTTONIEL Note: Patient acknowledges understanding of new diagnosis, plan of care, available resources and how to contact Nurse Navigator with any future questions or concerns. [facility] Ekaterina Rocha, OTTONIEL Note: Patient will be compliant with recommended breast imaging. [facility] Ekaterina Rocha, OTTONIEL Note: Patient will be compliant with monthly Self Breast Exams and is aware of to who to contact for any unusual or concerning findings. documented as of this encounter Visit Diagnoses Not on filedocumented in this encounter Care Teams Election Judge Relationship Specialty Start Date End Date Pranav Schmid MD PCP - General Family Medicine 01/30/16 Marco Herring MD [address] [place], [place] [id number] Medical Oncologist Internal Medicine-Hematology and Oncology 09/10/22 documented as of this encounter
--- OUTSIDE RECORDS SUMMARY | 2025-05-16 10:48 | XMS_ITS | Encounter Summary ---
Author Organization [place] [address] Care Team Providers Care Consulting Practice Director Name Role Phone Pranav Schmid MD Primary Care Provider [phone] Marco Herring MD Unavailable [phone] Encounter Details Date Type Department Care Team (Late st Contact Info) Description 04/12/2025 Plan of Care Documentation [facility] Physical Therapy [address] [place] [address] Social History Tobacco Use Types Packs/Day Years [...] documented in this encounter Miscellaneous Notes * Therapist Plan of Care - Jessica Marin, PT - 04/12/2025 10:21 AM EDT Images from the original note were not included. Please sign to acknowledge agreement with this updated plan of care. Upper Extremity Lymphedema Evaluation Patient Name: Rock Morris : 1975 Visit #: 1 (Medicare Replacement: [employer]) Onset Date: LEFT Breast Sx for IDC Lumpectomy & ALND 03/06/2023-NEGATIVE 3 LN MD Diagnosis: Breast swelling - Primary N63.0 611.72 History of left breast cancer Z85.3 Restrictions/Precautions: [place] LEFT sided Breast cancer, Brain ganglioma, s/p [...] [facility] 06/08/2025 9:15 AM Judi Krueger, PLANT ENGINEERING SUPERVISOR [facility] [place] 12/01/2025 9:00 AM [facility] MAMMO DIAG SONNY RM 1 [facility] [place] 12/01/2025 9:30 AM Kasia Denton APRN [facility] Insurance Authorization: Physical Therapist Authorized (04/12/2025-04/12/2026) Visits Requested Visits Authorized Visits Completed Visits Scheduled 1 1 -- 1 Details Referral ID: [id number] Authorization Status Reason: -- Authorization Comments: -- Referred To: Jessica Marin PT at [facility] ROSALES PT, [facility] ISAÍAS LUCILAHORATIO Referred By: Kasia Denton APRN Creation Date: [...] laws, raising her 8 y/o grand daughter, JULIAN helps home schoolher grand daughter, Pt does NOT drive since brain Sx, JULIAN typically accompanies her, but came by way [...] re excision; Surgeon: Andre Morley MD; Location: [facility] MAIN OR; Service: General BREAST LUMPECTOMY Bilateral 03/06/2023 Left Breast Mammogram Guided Segmentectomy, [place] Lymph Node Dissection, Right breast Mammogram guided Segmentectomy ; Surgeon: Andre Morley MD; Location: [facility] MAIN OR; Service: General IR FLUOROSCOPY GUIDED [...] [x] No Date Purchased: LAST year Vendor: [employer] Bandages: [] Yes [x] No Using currently: [...] lb. 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 [x] Unmet [] Progressing [] Met Custodial Goals: (set for 4 weeks) to 05/12/25: [...] 05/12/25. Treatments to consist of Therapeutic exercise 56575, Manual soft tissue and/or joint mobilization 89483, Patient education, Self care/Home management training 34842, and Vaso 42968 with focus on Complete Decongestive Therapy (instruction [...] more Unstable/ Unpredictable High Signature: Jessica Marin, QUIQUE Date: 04/12/2025 documented in this encounter Plan of Treatment Upcoming Encounters Date Type Department Care Team (Late st Contact Info) Description 05/26/2025 9:30 AM EDT Clinical Support [facility] [address] [address] 06/06/2025 11:00 AM EDT Appointment [facility] [place] [address] Kasia Denton, HUB CUTTER [address] [facility], [address] [address] 06/08/2025 9:15 AM EDT Appointment [place] [address] Judi Krueger NP [address] [place] [address] [address] [place] [id number] 12/01/2025 9:00 AM EST Appointment [facility] [address] [place], [place] [id number] Kasia Denton, HUB CUTTER [address] [facility], [address] [address] 12/01/2025 9:30 AM EST Appointment [facility] [address] [place] [id number] Kasia Denton, HUB CUTTER [address] [facility], [address] [address] documented as of this encounter Goals Goal Patient Goal Type Associated Problems Recent Progress Patient-Stated? Author Breast [facility] Breast Health On track(2023 1:44 PM EDT) Shreya Adames, RN Note: Patient acknowledges understanding of new diagnosis, plan of care, available resources and how to contact Nurse Navigator with any future questions or concerns. Breast [facility] Breast Health Ekaterina Rocha, [place] Note: Patient will be compliant with recommended breast imaging. Breast [facility] Ekaterina Rocha, [place] Note: Patient will be compliant with monthly Self Breast Exams and is aware of to who to contact for any unusual or concerning findings. documented as of this encounter Visit Diagnoses Not on filedocumented in this encounter Care Teams Consulting Practice Director Relationship Specialty Start Date End Date Pranav Schmid MD PCP - General Family Medicine 01/30/16 Marco Herring MD [address] [place] [address] Medical Oncologist Internal Medicine-Hematology and Oncology 09/10/22 documented as of this encounter
--- OUTSIDE RECORDS SUMMARY | 2025-05-16 10:48 | XMS_ITS | Clinical Summary ---
Author Organization [facility] Address [address] [place] [address] Phone Care Team Providers Care Cruise Consultant Name Role Phone Pranav Schmid MD Primary Care Provider Marco Herring MD Unavailable [phone] Allergies Active Allergy Reactions Criticality Noted Date Comments Chlor-Trimeton Non-Drowsy Difficulty w/concentration Codeine agitation Doxycycline Shortness Of Breath,Rash Medium 03/06/2023 Sulfa (Sulfonamide Antibiotics) Hives,Shortness Of Breath Medium Oseltamivir Myalgia 06/02/2020 Medications ibuprofen (ADVIL;MOTRIN) 800 mg Oral Tablet Take 800 mg by mouth every 8 hours. Active cholecalciferol , vitamin D3, 10 mcg (400 unit) Oral Capsule 10 mcg. 4 Active mecobalamin, vitamin B12, 1,000 mcg Oral Tablet, Chewable 1,000 mcg. 4 Active ketoconazole (NIZORAL) 2 % Top Shampoo Apply topically Three times weekly. Active predniSONE (DELTASONE) 10 mg Oral Tablet Take by mouth 2 times daily. Active Active Problems Problem Noted Date Diagnosed [...] from 08/26/2022:Stage IIA(cT2, cN0, cM0, G3, ER-, CA-, HER2+) - Signed by Andre Morley MD [...] Future MM US BREAST LIMITED LEFT; Future Encounters Date Type Department Care Team Description 05/16/2025 9:00 AM EDT Office Visit [facility] [address] [place] [address] [address] [place] [address] Dick Chang MD Invasive ductal carcinoma of breast, female, left (HCC) (Primary Dx); History of breast cancer; Well woman exam with routine gynecological exam; Cervical cancer screening; Screening for HPV (human papillomavirus); Postmenopausal bleeding 05/13/2025 Telephone [facility] [place] [address] Winifred Bonilla RN Other 04/20/[address], 3[place] [address] Meri Wu MD Colonoscopy 04/20/2025 Telephone [facility] [place] [address] Marco Herring MD Symptom Call (Vaginal bleeding ) 04/14/2025 Telephone [facility] [address], 3RD [place] [address] Pily Masterson, RMA Other 04/14/2025 Telephone [facility] [address] [facility] [address] [place] [address] Alexandra Rivas APRN Appointment Needed (Consult ) 04/13/2025 Travel 04/12/2025 9:06 AM EDT - 04/12/2025 11:59 PM EDT Hospital Encounter [facility] Physical Therapy [address] [address] Jessica Marin, PT Discharge Disposition: Home or Self Care 04/12/2025 Plan of Care Documentation [facility] Physical Therapy [address] [address] 04/11/2025 Orders Only [facility] Physical Therapy [address] [address] Jessica Marin, PT 04/05/2025 2:39 PM EDT - 04/05/2025 11:59 PM EDT Hospital Encounter [facility] [address] [place] [address] Alexandra Rivas, ADY Abdominal pain, left upper quadrant Discharge Disposition: Home or Self Care 03/04/2025 8:43 AM EDT - 03/04/2025 11:59 PM EDT Hospital Encounter [facility] [place] [address] Kasia Denton APRN Breast swelling; History of left breast cancer Discharge Disposition: Home or Self Care 03/04/2025 8:15 AM EDT - 03/04/2025 8:42 AM EDT Hospital Encounter [facility] [place] [address] Kasia Denton APRN Breast swelling; History of left breast cancer Discharge Disposition: Home or Self Care 03/03/2025 Results Follow-Up [facility] [place] [address] Kasia Denton APRN CBC WITH DIFF, AMYLASE LEVEL, MM US BREAST LIMITED LEFT 03/03/[address] [facility] [place] [address] Manuela Alberts MA Appointment Needed 03/02/2025 3:44 PM EDT - 03/02/2025 11:59 PM EDT Hospital Encounter [facility] [place] [address] Nausea Discharge Disposition: Home or Self Care 03/02/2025 2:30 PM EDT - 03/02/2025 3:43 PM EDT Hospital Encounter [facility] [place] [address] Kasia Denton APRN Breast swelling (Primary Dx); Retraction of skin of breast; History of left breast cancer; Nausea; Steatorrhea Discharge Disposition: Home or Self Care 03/01/[address] [facility] [place] [address] Jennifer Zheng, animal care assistant Only 02/23/2025 Telephone [facility] [address], 3RD [place] [address] Meri Wu MD Reschedule from Last 3 Months Surgical History Surgery Date Site/Laterality Comments BRAIN SURGERY cancer-gangioloma APPENDECTOMY LAPAROSCOPY TONSILLECTOMY AND ADENOIDECTOMY MOUTH SURGERY wisdom teeth BREAST BIOPSY 02/21/2016 Right Right Breast US biopsy benign BREAST BIOPSY 08/13/2022 Left malignant BREAST BIOPSY 09/09/2022 Right malignant IR ULTRASOUND GUIDED VASCULA R ACCESS 09/17/2022 IR ULTRASOUND GUIDED VASCULAR ACCESS 09/17/2022 Kirt Mullins MD FTT IR IR PORT PLACEMENT EQUAL OR > 5 YEARS 09/17/2022 IR PORT PLACEMENT EQUAL OR > 5 YEARS 09/17/2022 Kirt Mullins MD FTT IR BREAST LUMPECTOMY 03/06/2023 Bilateral Left Breast Mammogram Guided Segmentectomy, [place] Lymph Node Dissection, Right breast Mammogram guided Segmentectomy ; Surgeon: Andre Morley MD; Location: [facility] MAIN [facility]; Service: General BREAST BIOPSY 04/10/2023 Left Left breast re excision; Surgeon: Andre Morley MD; Location: [facility]IN OR; Service: General IR FLUOROSCOPY GUIDED CENTRA L VENOUS ACCESS DEVICE REMOVAL 10/09/2023 IR FLUOROSCOPY GUIDED CENTRAL VENOUS ACCESS DEVICE REMOVAL 10/09/2023 Meredith Villarreal PA-C [facility] IR Medical History Medical History Date Comments Anxiety Invasive ductal carcinoma of breast, female, lef t (HCC) 2021 left Malignant ganglioglioma (HCC) Urinary incontinence History of chemotherapy History of radiation therapy Breast neoplasm, Tis (LCIS) 2021 righ t Family History Medical History Relation Name Comments Diabetes Father Kidney Disease Father Breast Cancer Maternal Aunt Sammie several aunts Cancer Maternal Grandmother Tiffanie Kingsley Kidney Disease Mother Thyroid Disease Mother hypo Anesth Problems Neg Hx Relation Name Status Comments Father Maternal Aunt Sammie Maternal Grandmother Tiffanie Kingsley Mother Alive Sister 1 Alive Sister 2 Alive Social History Tobacco Use Types Packs/Day Years [...] on file Sexual Orientation Not on file Obstetrics History Para Term AB IAB SAB Ectopic Multiple Livin g Live Births 2 2 2 0 0 0 0 0 0 2 2 Date Outcome GA Total Labor Labor/2nd/3rd Weight Sex Type Anes PTL Mattie A1 A5 Name Clin 1995 Term F Vag-S pont Living 1996 Term F Vag-S pont Living Last Filed Vital Signs Vital Sign Reading Time Taken Comments Blood Pressure 122/68 05/16/2025 9:10 AM EDT Pulse 59 03/02/2025 2:47 PM EDT Temperature 36.7 C (98.1 F) 03/02/2025 2:47 PM EDT Respiratory Rate 18 12/02/2024 9:00 AM EST Oxygen Saturation 100% 12/02/2024 9:00 AM EST Inhaled Oxygen Concentration - - Weight 89 kg (196 lb 3.2 oz) 05/16/2025 9:10 AM EDT Height 167.6 cm (5' 6 ) 05/16/2025 9:10 AM EDT Body Mass Index 31.67 05/16/2025 9:10 AM EDT Plan of Treatment Upcoming Encounters Date Type Department Care Team (Late st Contact Info) Description 05/26/2025 9:30 AM EDT Clinical Support [facility] [address] [facility] [address] [place] [address] 06/06/2025 11:00 AM EDT Appointment [facility] [place] [id number] Kasia Denton APRN [address] [place] [address] 06/08/2025 9:15 AM EDT Appointment [place] [address] Judi Krueger, LISE [address] [place] [address] [address] RODRIGUEZ [facility]17 12/01/2025 9:00 AM EST Appointment [facility] [place] [address] Kasia Denton BUSINESS INITIATIVES MANAGER [address] [place] [address] 12/01/2025 9:30 AM EST Appointment [facility] Women[facility] [place] [address] Kasia Denton, BUSINESS INITIATIVES MANAGER [address] [place] [address] Health Maintenance Due Date Last Done Comments Wellness Exam Medicare 1978 DTaP/TDaP/Td (1 - Tdap) 1994 Hepatitis B Vaccine (1 of 3 - 19+ 3-dose series) 1994 HPV/Pap Cotest 2005 Cologuard 2020 Colonoscopy 2020 Sigmoidoscopy 2020 Virtual Colonography 2020 Colon Cancer Screening 06/03/2021 FIT 06/03/2021 06/03/2020 COVID-19 Vaccine ( season) 2024 Cervical Cancer Screening 03/18/2025 Pap Smear 03/18/2025 03/18/2022, 03/25/2019 Influenza Vaccine (#1) 2025 Breast Cancer Screening 03/04/2027 03/04/20, 12/02/2024, 04/05/2024, Additional history exists Meningococcal B Vaccine Aged Out No l onger eligible based on patient's age to complete this topic Pneumococcal Vaccine 0-49 Aged Out No longer eligible based on patient's age to complete this topic Goals Goal Patient Goal Type Associated Problems Recent Progress Patient-Stated? Author [facility] On track(2023 1:44 PM EDT) No Shreya Escobar, OTTON[place]EL Note: Patient acknowledges understanding of new diagnosis, plan of care, available resources and how to contact Nurse Navigator with any future questions or concerns. [facility] No Ekaterina Medley, O[place]ONIEL Note: Patient will be compliant with recommended breast imaging. [facility] No Ekaterina Medley, OTTONIEL Note: Patient will be compliant with monthly Self Breast Exams and is aware of to who to contact for any unusual or concerning findings. Medical Devices Explanted Type Area Set Up And Charger Device Identifier Shelf Expiration Date Model / Serial / Lot Port Danny Ti Vortex 8fr W/Attachable Bioflo Cath-09/17/2022 Implanted:Qty: 1 on 09/17/2022 by Kirt Mullins MD Explanted:Qty: 1 on 10/09/2023 by Meredith Villarreal PA-C [employer] [id number] STBD VI0 / / [id number] Procedures Procedure Name Priority Date/Time Associated Diagnosis Comments CT ABDOMEN PELVIS W CONTRAST Routine 04/05/2025 3:10 PM EDT Abdominal pain, left upper quadrant MM US BREAST LIMITED LEFT Routine 03/04/2025 9:00 AM EDT Breast swelling History of left breast cancer MM MAMMO DIGITAL SONNY DIAGN LEFT Routine 03/04/2025 8:34 AM EDT Breast swelling History of left breast cancer AMYLASE LEVEL Routine 03/02/2025 4:01 PM EDT Nausea CBC WITH DIFF Routine 03/02/2025 4:01 PM EDT Nausea APPLIQUER CYTOLOGY REQUEST (PAP ONLY) Routine 03/18/2022 3:25 PM EDT Well female exam with routine gynecological exam FECAL HEME (FIT) - NOT FOR DETECTING UGI BLEEDING Routine 06/03/2020 8:48 PM EDT from Last 3 Months or Most Recently Relevant to Health Maintenance Results * CT ABDOMEN PELVIS W CONTRAST [...] 3:10 PM CLINICAL HISTORY: R10.12-Left upper quadrant [id number]. COMPARISON: None. PROCEDURE COMMENTS: Multi-detector CT of [...] 3:10 PM CLINICAL HISTORY: R10.12-Left upper quadrant [id number]. COMPARISON: None. PROCEDURE COMMENTS: Multi-detector CT of [...] please contactthe office of the ordering clinician. us Alexandra Rivas BUSINESS INITIATIVES MANAGER IMG CT ORDERABLES Final Result * MM US BREAST LIMITED LEFT (03/04/2025 9:00 AM EDT) Anatomical Region Laterality Modality Breast Left Ultrasound 03/04/2025 9:00 AM EDT Impressions 03/04/2025 9:16 AM EDT Negative ([id number]) ASSESSMENT TEXT: There is no sonographic evidence of malignancy in the left breast. RECOMMENDATION: Return to Annual Diagnostic Mammogram . . COMMENTS: The patient will be due for bilateral diagnostic mammogram in November 2025. There is a minimally pink 8 cm area of dermis in the left upper quadrant. The patient was instructed to follow-up with her primary care provider. DISCLAIMER *The patient was notified by [employer] or mail of the results for this examination. *The patient's information was entered into a reminder system with a target due date for the next breast imaging, in accordance with the [place] [employer] and the Society of Breast Imaging recommendations. *Breast Imaging has a false negative rate of 15%. *Any patient with a palpable abnormality, unexplained by breast imaging, should be managed on a clinical basis by the attending physician. Narrative 03/04/2025 9:16 AM EDT EXAM: MM US BREAST LIMITED LEFT EXAM DATE: 03/04/2025 9:00 AM INDICATION: The patient is a 49-year-old female with pain in the upper inner quadrant left breast and left breast fullness. The patient also has a patch of mildly pain. Erythematous dermis along the left upper quadrant of the abdomen. COMPARISON STUDIES: Compared with prior studies the most recent being 12/02/2024 MM MAMMO DIGITAL SONNY DIAGN BILAT at [facility] 04/05/2024 MM MAMMO DIGITAL SONNY DIAGN BILAT at [facility] 08/23/2022 MM MAMMO DIGITAL SONNY DIAGN RIGHT at [facility] FINDINGS: A targeted ultrasound was performed on the left breast the site of pain described by the patient. There is no suspicious mass or sonographic abnormality in the upper inner quadrant. There is normal subcutaneous fat and fibroglandular breast tissue. On physical exam by the radiologist there is an approximate 8 cm oval area of minimally erythematous pink dermis. This is located on the left upper quadrant of the abdomen. There is no associated mass or lump at the site of the skin changes. There is no increased warmth in the area. The area is not painful to the patient. Procedure Note Nakia Merino MD - 03/04/2025 EXAM: MM US BREAST LIMITED LEFT EXAM DATE: 03/04/2025 9:00 AM INDICATION: The patient is a 49-year-old female with pain in the upperinner quadrant left breast and left breast fullness. The patient also has apatch of mildly pain. Erythematous dermis along the left upper quadrant of theabdomen. COMPARISON STUDIES: Compared with prior studies the most recent being 12/02/2024 MM MAMMO DIGITAL SONNY DIAGN BILAT at [facility] 04/05/2024 MM MAMMO DIGITAL SONNY DIAGN BILAT at [facility] 08/23/2022 MM MAMMO DIGITAL SONNY DIAGN RIGHT at [facility] FINDINGS: A targeted ultrasound was performed on the left breast the site of pain described by the patient. There is no suspicious mass or sonographicabnormality in the upper inner quadrant. There is normal subcutaneous fat andfibroglandular breast tissue. On physical exam by the radiologist there is an approximate 8 cm oval areaof minimally erythematous pink dermis. This is located on the left upperquadrant of the abdomen. There is no associated mass or lump at the site of theskin changes. There is no increased warmth in the area. The area is not painfulto the patient. IMPRESSION: Negative ([id number]) ASSESSMENT TEXT: There is no sonographic evidence of malignancy in theleft breast. RECOMMENDATION: Return to Annual Diagnostic Mammogram . . COMMENTS: The patient will be due for bilateral diagnostic mammogram inJanuary 2025. There is a minimally pink 8 cm area of dermis in the left upperquadrant. The patient was instructed to follow-up with her primary care provider. DISCLAIMER *The patient was notified by MyChart or mail of the results for this examination. *The patient's information was entered into a reminder system with atarget due date for the next breast imaging, in accordance with the [place] [employer] and the Society of Breast Imaging recommendations. *Breast Imaging has a false negative rate of 15%. *Any patient with a palpable abnormality, unexplained by breast imaging,should be managed on a clinical basis by the attending physician. Kasia Denton BUSINESS INITIATIVES MANAGER IM MAMMOGRAPHY ORDERABLES Fin al Result * (ABNORMAL) MM MAMMO DIGITAL SONNY DIAGN LEFT (03/04/2025 8:34 AM EDT) Anatomical Region Laterality Modality Breast Left Mammography 03/04/2025 8:34 AM EDT Impressions 03/04/2025 11:55 AM EDT Incomplete: Need additional imaging evaluation ([id number]) ASSESSMENT TEXT: There is no mammographic evidence of malignancy in the left breast. RECOMMENDATION: Additional Imaging Breast Ultrasound Left COMMENTS: This ultrasound examination will be performed on the same date and reported separately. DISCLAIMER *The patient was notified by [employer] or mail of the results for this examination. *The patient's information was entered into a reminder system with a target due date for the next breast imaging, in accordance with the [place] [employer] and the Society of Breast Imaging recommendations. *Breast Imaging has a false negative rate of 15%. *Any patient with a palpable abnormality, unexplained by breast imaging, should be managed on a clinical basis by the attending physician. Narrative 03/04/2025 11:55 AM EDT EXAM: MM MAMMO DIGITAL SONNY DIAGN LEFT EXAM DATE: 03/04/2025 8:34 AM INDICATION: The patient is a 49-year-old female with new diffuse left breast pain and fullness of the left breast. She states the left breast is larger than the right, which is a new finding. The patient has a personal history of invasive ductal carcinoma of the left breast diagnosed in 2021. COMPARISON STUDIES: Compared with prior studies, the most recent being 12/02/2024 MM MAMMO DIGITAL SONNY DIAGN BILAT at [facility] 04/05/2024 MM MAMMO DIGITAL SONNY DIAGN BILAT at [facility] 08/23/2022 MM MAMMO DIGITAL SONNY DIAGN RIGHT at [facility] TISSUE DENSITY: There are scattered areas of fibroglandular density. FINDINGS: There is stable architectural distortion and metallic clips in the upper outer quadrant left breast at the site of prior lumpectomy. There are no new masses or concerning microcalcifications. There is no dermal thickening. Procedure Note Nakia Merino MD - 03/04/2025 EXAM: MM MAMMO DIGITAL SONNY DIAGN LEFT EXAM DATE: 03/04/2025 8:34 AM INDICATION: The patient is a 49-year-old female with new diffuse leftbreast pain and fullness of the left breast. She states the left breast is largerthan the right, which is a new finding. The patient has a personal history of invasive ductal carcinoma of the left breast diagnosed in 2021. COMPARISON STUDIES: Compared with prior studies, the most recent being 12/02/2024 MM MAMMO DIGITAL SONNY DIAGN BILAT at [facility] 04/05/2024 MM MAMMO DIGITAL SONNY DIAGN BILAT at [facility] 08/23/2022 MM MAMMO DIGITAL SONNY DIAGN RIGHT at [facility] TISSUE DENSITY: There are scattered areas of fibroglandular density. FINDINGS: There is stable architectural distortion and metallic clips inthe upper outer quadrant left breast at the site of prior lumpectomy. Thereare no new masses or concerning microcalcifications. There is no dermalthickening. IMPRESSION: Incomplete: Need additional imaging evaluation ([id number]) ASSESSMENT TEXT: There is no mammographic evidence of malignancy in theleft breast. RECOMMENDATION: Additional Imaging Breast Ultrasound Left COMMENTS: This ultrasound examination will be performed on the same dateand reported separately. DISCLAIMER *The patient was notified by MyChart or mail of the results for this examination. *The patient's information was entered into a reminder system with atarget due date for the next breast imaging, in accordance with the [place] [employer] and the Society of Breast Imaging recommendations. *Breast Imaging has a false negative rate of 15%. *Any patient with a palpable abnormality, unexplained by breast imaging,should be managed on a clinical basis by the attending physician. Kasia Denton APRN IM MAMMOGRAPHY ORDERABLES Fin al Result * CBC WITH DIFF (03/02/2025 4:01 PM EDT) WBC 8.5 3.7 - 10.3 x10(3)/mcL 03/02/2025 4:39 PM EDT [facility] RBC 4.82 3.90 - 5.20 x10(6)/mcL 03/02/2025 4:39 PM EDT [facility] Hgb 13.4 11.2 - 15.7 g/dL 03/02/2025 4:39 PM EDT [facility] Hct 42.3 34.0 - 45.0 % 03/02/2025 4:39 PM EDT [facility] MCV 87.8 80.0 - 100.0 fL 03/02/2025 4:39 PM EDT [facility] MCH 27.8 26.0 - 34.0 pg 03/02/2025 4:39 PM EDT [facility] MCHC 31.7 30.7 - 35.5 g/dL 03/02/2025 4:39 PM EDT [facility] RDW 14.3 <=14.9 % 03/02/2025 4:39 PM EDT [facility] Platelet 161 155 - 369 x10(3)/mcL 03/02/2025 4:39 PM EDT [facility] MPV 11.6 8.8 - 12.5 fL 03/02/2025 4:39 PM EDT [facility] Neut # Prelim 5.7 1.6 - 6.1 x10(3)/mcL 03/02/2025 4:39 PM EDT [facility] Neut Percent 66.9 % 03/02/2025 4:39 PM EDT [facility] Comment:Neutrophils equals s egs plus bands Imm Gran% 0.2 % 03/02/2025 4:39 PM EDT [facility] Comment:Automated count of m etamyelocytes, myelocytes and promyelocytes. Lymph Percent 25.1 % 03/02/2025 4:39 PM EDT [facility] [place] Percent 5.9 % 03/02/2025 4:39 PM EDT [facility] Eos Percent 1.3 % 03/02/2025 4:39 PM EDT [facility] Baso Percent 0.6 % 03/02/2025 4:39 PM EDT [facility] Neut # 5.7 1.6 - 6.1 x10(3)/[facility] 03/02/2025 4:39 PM EDT [facility] Comment:Neutrophils equals s egs plus bands IMMGRAN# 0.0 0.0 - 0.1 x10(3)/mcL 03/02/2025 4:39 PM EDT [facility] Comment:Automated count of m etamyelocytes, myelocytes and promyelocytes. An absolute IG <0.1 is reported as 0.0. Lymph # 2.1 1.2 - 3.9 x10(3)/[facility] 03/02/2025 4:39 PM EDT [facility] [place] # 0.5 0.3 - 0.9 x10(3)/[facility] 03/02/2025 4:39 PM EDT [facility] Eos# 0.1 0.0 - 0.5 x10(3)/[facility] 03/02/2025 4:39 PM EDT [facility] Baso # 0.1 0.0 - 0.1 x10(3)/[facility] 03/02/2025 4:39 PM EDT [facility] [facility] [employer], [facility] Blood VENOUS BLOOD / Unknown Venipuncture / Unknown 03/02/2025 4:01 PM EDT 03/02/2025 4:01 PM EDT Kasia Denton APRN HEMATOLOGY ORDERABLES Final Re sult Performing Organization Address [facility]/ZIP Co de Phone Number [facility] [employer], [facility] [address] [address] , [place] [address] * AMYLASE LEVEL (03/02/2025 4:01 PM EDT) Amylase Lvl 50 28 - 100 U/L 03/02/2025 5:05 PM EDT [facility] [employer] [employer], [facility] Blood VENOUS BLOOD / Unknown Venipuncture / Unknown 03/02/2025 4:01 PM EDT 03/02/2025 4:01 PM EDT Kasia Denton APRN CHEMISTRY ORDERABLES Final Res ult [facility] [employer] [employer] [address] , [place] [address] * APPLIQUER CYTOLOGY REQUEST (PAP ONLY) (03/18/2022 3:25 PM EDT) CASE REPORT Gynecologic Cytology Report Case: [id number] Authorizing Provider: Pranav Snow MD Collected: 03/18/2022 1525 Ordering Location: [facility] Received: 03/18/2022 1525 First Screen: Serina Jameson CT Specimen: LIQUID-BASED PAP - CERVICAL/ENDOCERV ICAL, Cervix, Endocervical 03/21/2022 1:[address] [facility] PAP FINAL DIAGNOSIS Negative for intraepithelial lesion or malignancy 03/21/2022 1:[address] [facility] at 1354 EDT MICROSCOPIC DESCRIPTION Microscopic examination is performed and the findings corroborate the diagnosis. 03/21/2022 1:[address] [facility] PAP SMEAR ADEQUACY Satisfactory for evaluation 03/21/2022 1:[address] [facility] ENDOCERVICAL T-ZONE Transformation zone absent. 03/21/2022 1:[address] [facility] EMBEDDED IMAGES 1:[address] [facility] PAP DISCLAIMER The Pap Smear is a screening test that aids in the detection of cervical cancer and cancer precursors. Both false positive and false negative results can occur. The test should be used at regular intervals, and positive results should be confirmed before definitive therapy. Processed using the ThinPrep Multiple Drill Operator Automated cytology screening device (Sensicore). 03/21/2022 1:[address] [facility] PAP OTHER FINDINGS Many acute inflammatory cells noted. 03/21/2022 1:[address] [facility] Thin Prep ENDOCERVICAL STRUCTURE / Unknown 03/18/2022 3:25 PM EDT 03/18/2022 3:25 PM EDT us Pranav Snow MD CYTOLOGY [place] [address] from Last 3 Months or Most Recently Relevant to Health Maintenance Insurance [place] [employer] MED[place] HMO [place] MED[place] HMO Advance Directives For more information, please contact: [phone] * Full Code (Latest Code Status on File) Date Activated Date Inactivated Comments 06/03/2020 8:07 AM 06/04/2020 6:42 PM Care Teams Cruise Consultant Relationship Specialty Start Date End Date Pranav Schmid MD PCP - General Family Medicine 01/30/16 Marco Herring MD [address] [facility] [place] [address] Medical Oncologist Internal Medicine-Hematology and Oncology 09/10/22
--- OUTSIDE RECORDS SUMMARY | 2025-05-16 10:48 | XMS_ITS | Encounter Summary ---
Author Organization [place] [address] Care Team Providers Care Compressed Gas Tester Name Role Phone Pranav Schmid MD Primary Care Provider [phone] Marco Herring MD Unavailable [phone] Reason for Referral * Physical Therapy (Routine) - Pending Review Specialty Diagnoses / Procedures Referred By Porfirio mcfarland Referred To Contact Physical Therapist - Orthopedic / Physical Therapy Diagnoses Breast swelling History of left breast cancer Kasia Denton APRN [address] [place] [address] Phone: tel: fax: [facility] Physical Therapy [address] [place] [address] Phone: tel: fax: Referral ID Status Reason Start Date Expiration Date V isits Requested Visits Authorized [id number] Pending Review 03/04/2025 03/04/2026 1 1 Question Answer Reason for Physical Therapy Evaluate and Treat Comments breast lymphedema episode now resolving. hx lumpectomy w/ xrt Encounter Details Date Type Department Care Team (Late st Contact Info) Description 03/03/2025 Results Follow-Up [facility] [place] [address] Kasia Denton APRN [address] [place] [address] CBC WITH DIFF, AMYLASE LEVEL, MM US BREAST LIMITED LEFT Social History Tobacco Use Types Packs/Day Years [...] 06/04/2020 1:22 PM Joao Shaver RN * Is the person blind or [...] Joao Shaver RN documented in this encounter Plan of Treatment Upcoming Encounters Date Type Department Care Team (Late st Contact Info) Description 05/26/2025 9:30 AM EDT Clinical Support [facility] [address] [address] 06/06/2025 11:00 AM EDT Appointment [facility] [place] [address] Kasia Denton, STATION ENGINEER MAIN LINE [address] [place] [address] 06/08/2025 9:15 AM EDT Appointment [facility] [place] [address] Judi Krueger, LISE [address] [place] [address] [place] [address] 12/01/2025 9:00 AM EST Appointment [facility] [address] [place] [id number] Kasia Denton, STATION ENGINEER MAIN [address] [place] [address] 12/01/2025 9:30 AM EST Appointment [facility] [address] [place] [id number] Kasia Denton, STATION ENGINEER [address] [place] [address] Scheduled Referrals Name Type Priority Associated Diagnoses Orde r Schedule AMB REFERRAL TO PHYSICAL THERAPY Outpatient Referral Routine Breast swelling History of left breast cancer Ordered: 03/04/2025 documented as of this encounter Goals Goal Patient Goal Type Associated Problems Recent Progress Patient-Stated? Author [facility] Breast Health On track(2023 1:44 PM EDT) Shreya Adames, RN Note: Patient acknowledges understanding of new diagnosis, plan of care, available resources and how to contact Nurse Navigator with any future questions or concerns. [facility] Breast Health No Ekaterina Medley, OTTONIEL Note: Patient will be compliant with recommended breast imaging. [facility] Breast Health No Ekaterina Medley, OTTONIEL Note: Patient will be compliant with monthly Self Breast Exams and is aware of to who to contact for any unusual or concerning findings. documented as of this encounter Visit Diagnoses Diagnosis Breast swelling- Primary Lump or mass in breast History of left breast cancer documented in this encounter Care Teams Compressed Gas Tester Relationship Specialty Start Date End Date Pranav Schmid MD PCP - General Family Medicine 01/30/16 Marco Herring MD [address] [place] [address] [place] [address] Medical Oncologist Internal Medicine-Hematology and Oncology 09/10/22 documented as of this encounter
--- OUTSIDE RECORDS SUMMARY | 2025-05-16 10:49 | XMS_ITS | Encounter Summary ---
Author Organization [place] [address] Care Team Providers Care Employment Recruiter Name Role Phone Pranav Schmid MD Primary Care Provider [phone] Marco Herring MD Unavailable [phone] Reason for Visit * Reason Onset Date Comments Other 05/13/2025 Encounter Details Date Type Department Care Team (Late Contact Info) Description 05/13/2025 Telephone [facility] Women[facility]ness [facility] [place] [address] Winifred Bonilla RN Other Social History Tobacco Use Types Packs/Day [...] encounter Miscellaneous Notes * Telephone Encounter - Norma Turner RN - 05/16/2025 8:01 AM EDT Spoke with patient to make sure she received our message that per Kasia Denton, she does not need imaging at this time unless she is having new problems. She said she doesn't know who told her she needed imaging now but she just wants to wait until her appointment in June. Encouraged her to call us if she does notice any changes that she would like to have assessed. * Telephone Encounter - Winifred Bonilla RN - 05/13/2025 1:53 PM EDT [facility] asked [facility] to call pt. She is scheduled for lt breast US on 05/16/25, has no follow up with [facility] scheduled. Zuleyma asks if pt needs this imaging done. N reviewed chart. Pt saw Kasia Denton on 03/02/25 and had imaging done on 03/04/25. [facility] spoke to Kasia and per Kasia pt doesn't need any imaging. If pt is having breast issues, Kasia will be happy to see her. N called pt to update her. Pt states someone called her and told her the imaging wasn't clear and they wanted more imaging. [facility] spoke to MOISES Abel who reviewed the chart. There is no documentation of someone calling pt about imaging. Per Page, pt doesn't need imaging. [facility] attempted to call pt. LVM for a return call. documented in this encounter Plan of Treatment Upcoming Encounters Date Type Department Care Team (Late st Contact Info) Description 05/26/2025 9:30 AM EDT Clinical Support [facility] [address] [facility] [address] [place] [address] 06/06/2025 11:00 AM EDT Appointment [facility] [place] [address] Kasia Denton APRN [address] [place] [address] 06/08/2025 9:15 AM EDT Appointment [facility] [place] [address] Judi Krueger NP [address] [place] [address] [address] [place] [place] [address] 12/01/2025 9:00 AM EST Appointment [facility] [address] [place] [facility] Kasia Denton RAILWAY ENGINEER [address] [facility] [place] [address] 12/01/2025 9:30 AM EST Appointment [facility] [place] [address] Kasia Denton RAILWAY ENGINEER [address] [place] [address] documented as of this encounter Goals Goal Patient Goal Type Associated Problems Recent Progress Patient-Stated? Author Breast Health Breast Health On track(2023 1:44 PM EDT) Shreya Adames, RN Note: Patient acknowledges understanding of new diagnosis, plan of care, available resources and how to contact Nurse Navigator with any future questions or concerns. [facility] Ekaterina Rocha, [place]ONIEL Note: Patient will be compliant with recommended breast imaging. [facility] Ekaterina Rocha, [place]ONIEL Note: Patient will be compliant with monthly Self Breast Exams and is aware of to who to contact for any unusual or concerning findings. documented as of this encounter Visit Diagnoses Not on filedocumented in this encounter Care Teams Employment Recruiter Relationship Specialty Start Date End Date Pranav Schmid MD PCP - General Family Medicine 01/30/16 Marco Herring MD [address] [place] [address] [place] [address] Medical Oncologist Internal Medicine-Hematology and Oncology 09/10/22 documented as of this encounter
[2025-05-16 14:15] LABS: Antinuclear Antibodies, IFA Negative (.)
== END 2025-05-13 23:59 | disposition home or self-care (01) ==
LOC: LAB.DROPOF 05-16 10:46
PROVIDERS: PCP Family Medicine; Visit Provider Family Medicine
DX: D64.9 Anemia, unspecified (principal); E55.9 Vitamin D deficiency, unspecified; M25.50 Pain in unspecified joint; Z11.59 Encounter for screening for other viral diseases
CPT/HCPCS: 80053; 80061; 80074; 84550; 85025; 85651; 86038; 86140; 86225; 86235; 86431; 87340; 87389